=== PATIENT | female | born 1935 | race Caucasian/White ===

== ENCOUNTER 2017-04-27 13:45 | Inpatient (IN) | payer MEDICARE ==
[2017-04-27 14:34] LABS: Hematocrit 34.5 % (30.3-42.9); Hemoglobin 11.1 gm/dl (10.1-14.3); Mean Corpuscular HGB Conc 32 % (30-34); Mean Corpuscular Hemoglobin 29 pg (28-32); Mean Corpuscular Volume 90 fl (79-97); Platelet Count 249 K/mm3 (140-440); Red Blood Count 3.84 M/mm3 (3.65-5.03); Red Cell Distribution Width 15.9 % (13.2-15.2); White Blood Count 16.2 K/mm3 (4.5-11.0)
[2017-04-27 14:44] LABS: Calcium 8.7 mg/dL (8.4-10.2); Chloride 94.6 mmol/L (98-107); Potassium 4.8 mmol/L (3.6-5.0)
--- NOTE | 2017-04-27 21:13 | Emergency Department Report ---
ED General Adult HPI - General Chief complaint: Medical Clearance Stated complaint: NEEDS DIALYSIS Time Seen by Provider: 04/27/17 20:34 Source: patient, television and radio repairer Mode of arrival: Wheelchair Limitations: Language Barrier - History of Present Illness Initial comments: 81-year-old female with a past medical history of end-stage renal disease on dialysis, CHF, asthma, hypertension, left BKA present hospital with complaints of needing dialysis. Patient arrived here from [place] to date. Last dialysis was Thursday 2 days ago in [place]. Patient came here due to persistent power issues at the dialysis center in [place]. She is due for dialysis again tomorrow and does not have a local dialysis center. Patient makes very little urine output. No physical complaints reported. Patient has a right chest wall catheter for dialysis and had a left upper arm AV graft placed on 03/20/2017 that has not yet been accessed. - Related Data Home Medications Medication Instructions Recorded Confirmed Last Taken Aspirin 81 mg PO PMHY 04/27/17 04/27/17 Unknown AtorvaSTATin 40 mg PO PMHY 04/27/17 04/27/17 Unknown Budesonide 0.5 mg INHALATION BID PRN 04/27/17 04/27/17 Unknown Carvedilol 3.125 mg PO BID 04/27/17 04/27/17 Unknown Clonazepam 0.1 mg PO PMHY 04/27/17 04/27/17 Unknown Gabapentin 400 mg PO HS 04/27/17 04/27/17 Unknown Humalog 35 units INHALATION DAILY 04/27/17 04/27/17 Unknown Ipratropium 2.5 ml INHALATION Q6HR PRN 04/27/17 04/27/17 Unknown Isosorbide Mononitrate 30 mg PO DAILY 04/27/17 04/27/17 Unknown Lansoprazole 30 mg PO DAILY 04/27/17 04/27/17 Unknown Lantus 15 units IV HS 04/27/17 04/27/17 Unknown Prevacid 30 mg PO DAILY PRN 04/27/17 04/27/17 Unknown Synthroid 150 mcg PO DAILY 04/27/17 04/27/17 Unknown Allergies Allergy/AdvReac Type Severity Reaction Status Date / Time shellfish derived Allergy Unknown Verified 04/27/17 14:09 ED Review of Systems ROS: Stated complaint: NEEDS DIALYSIS Other details as noted in HPI Comment: All other systems reviewed and negative Other: Constitutional: No fevers chills Eyes: No eye pain visual changes ENT: No ear pain or throat pain Neck: Denies pain Respiratory: Denies cough Cardiovascular: Denies chest pain, palpitations, syncope GI: Denies abdominal pain, nausea, vomiting, diarrhea : minimal urie output Musculoskeletal: Denies back pain Skin: Denies rash, lesions, erythema Neurologic: Denies headache, numbness, weakness Psychiatric: Denies suicidal ideation, hallucinations ED Past Medical Hx - Past Medical History Hx Hypertension: Yes Hx Congestive Heart Failure: Yes Hx Diabetes: Yes Hx Renal Disease: Yes (ESRD with HD) Hx Asthma: Yes Additional medical history: amputation L AK,hypothyroidism,cardiomegaly,CAD, pneumonia,PVD - Surgical History Additional Surgical History: left below knee amputation.hysterectomy,heart stints,vascath right chest,AV graft 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 - Social History Smoking Status: Unknown if ever smoked Substance Use Type: None - Medications Home Medications: Home Medications Medication Instructions Recorded Confirmed Last Taken Type Aspirin 81 mg PO PMHY 04/27/17 04/27/17 Unknown History AtorvaSTATin 40 mg PO PMHY 04/27/17 04/27/17 Unknown History Budesonide 0.5 mg INHALATION BID PRN 04/27/17 04/27/17 Unknown History Carvedilol 3.125 mg PO BID 04/27/17 04/27/17 Unknown History Clonazepam 0.1 mg PO PMHY 04/27/17 04/27/17 Unknown History Gabapentin 400 mg PO HS 04/27/17 04/27/17 Unknown History Humalog 35 units INHALATION DAILY 04/27/17 04/27/17 Unknown History Ipratropium 2.5 ml INHALATION Q6HR PRN 04/27/17 04/27/17 Unknown History Isosorbide Mononitrate 30 mg PO DAILY 04/27/17 04/27/17 Unknown History Lansoprazole 30 mg PO DAILY 04/27/17 04/27/17 Unknown History Lantus 15 units IV HS 04/27/17 04/27/17 Unknown History Prevacid 30 mg PO DAILY PRN 04/27/17 04/27/17 Unknown History Synthroid 150 mcg PO DAILY 04/27/17 04/27/17 Unknown History ED Physical Exam - General Limitations: Language Barrier - Other Other exam information: General: No limitations, patient is alert in no acute distress Head exam: Atraumatic, normocephalic Eyes exam: Normal appearance, pupils equal reactive to light, extraocular movements intact ENT: Moist mucous membrane, normal oropharynx Neck exam: Normal inspection, full range of motion, no meningismus nontender Respiratory exam: Mild crackles at the bases. No wheezes, rales, or tachypnea. Right chest wall Vas-Cath Cardiovascular: Normal rate and rhythm, normal heart sounds Abdomen: Soft, nondistended, and nontender, with normal bowel sounds, no rebound, or guarding Extremity: Full range of motion, left BKA, left upper arm AV graft with positive thrill Back: Normal Inspection, full range of motion, no tenderness Neurologic: Alert, oriented x3, cranial nerves intact, no motor or sensory deficit Psychiatric: normal affect, normal mood Skin: Warm, dry, intact ED Course Vital Signs 04/27/17 04/27/17 04/27/17 14:01 15:44 16:00 Temperature 99.8 F H Pulse Rate 77 75 75 Respiratory 18 12 14 Rate Blood Pressure 140/93 128/56 Blood Pressure [Left] O2 Sat by Pulse 93 93 Oximetry 04/27/17 19:24 Temperature Pulse Rate 74 Respiratory 16 Rate Blood Pressure Blood Pressure 107/46 [Left] O2 Sat by Pulse 96 Oximetry - Reevaluation(s) Reevaluation #1: 04/27/17 21:15 Patient stable - Consultations Consultation #1: 04/27/17 21:13 case d/w Nephrology digital solution architect Dr Zarate, will consult and arrange for dialysis ED Medical Decision Making - Lab Data Result diagrams: 04/27/17 14:14 04/27/17 14:14 Lab Results 04/27/17 04/27/17 Range/Units 14:14 14:14 WBC 16.2 H (4.5-11.0) K/mm3 RBC 3.84 (3.65-5.03) M/mm3 Hgb 11.1 (10.1-14.3) gm/dl Hct 34.5 (30.3-42.9) % MCV 90 (79-97) fl MCH 29 (28-32) pg MCHC 32 (30-34) % RDW 15.9 H (13.2-15.2) % Plt Count 249 (140-440) K/mm3 Sodium 136 L (137-145) mmol/L Potassium 4.8 (3.6-5.0) mmol/L Chloride 94.6 L (98-107) mmol/L Carbon Dioxide 26 (22-30) mmol/L Anion Gap 20 mmol/L BUN 50 H (7-17) mg/dL Creatinine 3.3 H (0.7-1.2) mg/dL Estimated GFR 13 ml/min BUN/Creatinine Ratio 15 % Glucose 169 H (65-100) mg/dL Calcium 8.7 (8.4-10.2) mg/dL - EKG Data -: EKG Interpreted by Me (sinus rate 75, poor R-wave progression, LAFB, LVH) - EKG Data When compared to previous EKG there are: previous EKG unavailable - Radiology Data Radiology results: image reviewed (chest x-ray: Mild CHF) - Medical Decision Making Plan to admit patient to the hospital to receive dialysis tomorrow as scheduled and to help with arrangement of continued outpatient dialysis. Case has been discussed with nephrology. - Differential Diagnosis volume overload, hyperkalemia, noncompliance Critical Care Time: No Critical care attestation.: If time is entered above; I have spent that time in minutes in the direct care of this critically ill patient, excluding procedure time. ED Disposition Clinical Impression: ESRD needing dialysis, Acute CHF, Diabetes, HTN (hypertension), History of left below knee amputation Disposition: OP ADMIT IP TO THIS HOSP Is pt being admited?: Yes Condition: Stable Time of Disposition: 21:17 (Dr. Brice/hosp)
[2017-04-27] MEDS ORDERED: D50W (25GM) Syringe IV PRN (21:51)
[2017-04-27] MEDS ORDERED: TYLENOL PO PRN (21:54)
[2017-04-27] MEDS ORDERED: ZOFRAN IV PRN (21:55)
[2017-04-27] MEDS ORDERED: BUDESONIDE 0.5 MG INHALATION PRN (21:58)
[2017-04-27] MEDS ORDERED: IPRATROPIUM INHALATION PRN (21:58)
[2017-04-27] MEDS ORDERED: PREVACID 30 MG PO PRN (21:58)
[2017-04-27] MEDS ORDERED: LANTUS 15 UNIT IV SCH (22:00)
[2017-04-28] MEDS: COREG PO SCH ×3 (00:26→21:13)
[2017-04-28] MEDS: HALFPRIN EC PO SCH ×2 (00:38→21:13)
[2017-04-28] MEDS: NEURONTIN PO SCH ×2 (00:39→21:13)
[2017-04-28] MEDS: LEVEMIR SUB-Q SCH ×2 (00:53→21:21)
[2017-04-28 05:04] LABS: Hematocrit 30.9 % (30.3-42.9); Hemoglobin 10.1 gm/dl (10.1-14.3); Mean Corpuscular HGB Conc 33 % (30-34); Mean Corpuscular Hemoglobin 29 pg (28-32); Mean Corpuscular Volume 90 fl (79-97); Platelet Count 226 K/mm3 (140-440); Red Blood Count 3.44 M/mm3 (3.65-5.03); Red Cell Distribution Width 15.7 % (13.2-15.2); White Blood Count 11.3 K/mm3 (4.5-11.0)
[2017-04-28] MEDS: SYNTHROID PO SCH (05:16)
[2017-04-28] MEDS: ATROVENT IH SCH ×2 (05:16→07:36)
[2017-04-28 06:37] LABS: Calcium 8.6 mg/dL (8.4-10.2); Chloride 97.8 mmol/L (98-107); Potassium 4.7 mmol/L (3.6-5.0)
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
[2017-04-28] MEDS: PULMICORT IH SCH ×2 (07:36→20:30)
--- NOTE | 2017-04-28 08:07 | Consultation ---
History of Present Illness - Reason for Consult Consult date: 04/28/17 end stage renal disease, other (Anemia) - History of Present Illness The patient is a 81-year-old HF with medical history significant for ESRD on hemodialysis, Type 2 DM, CHF, Asthma, Hypertension, s/p left BKA, Hypothyroid and GERD presented to the ER with complaints of needing dialysis. Patient speaks only Malay. Patient was last dialyzed 3 days ago in [place]. Patient came here due to persistent power issues at the dialysis center in [place]. Past History Past Medical History: anemia, dialysis, ESRD, GERD, heart failure, hypertension Medications and Allergies Allergies Allergy/AdvReac Type Severity Reaction Status Date / Time shellfish derived Allergy Unknown Verified 04/27/17 14:09 Home Medications Medication Instructions Recorded Confirmed Last Taken Type Aspirin 81 mg PO PMHY 04/27/17 04/27/17 Unknown History AtorvaSTATin 40 mg PO PMHY 04/27/17 04/27/17 Unknown History Budesonide 0.5 mg INHALATION BID PRN 04/27/17 04/27/17 Unknown History Carvedilol 3.125 mg PO BID 04/27/17 04/27/17 Unknown History Clonazepam 0.1 mg PO PMHY 04/27/17 04/27/17 Unknown History Gabapentin 400 mg PO HS 04/27/17 04/27/17 Unknown History Humalog 35 units INHALATION DAILY 04/27/17 04/27/17 Unknown History Ipratropium 2.5 ml INHALATION Q6HR PRN 04/27/17 04/27/17 Unknown History Isosorbide Mononitrate 30 mg PO DAILY 04/27/17 04/27/17 Unknown History Lansoprazole 30 mg PO DAILY 04/27/17 04/27/17 Unknown History Lantus 15 units SUB-Q HS 04/27/17 04/27/17 Unknown History Prevacid 30 mg PO DAILY PRN 04/27/17 04/27/17 Unknown History Synthroid 150 mcg PO DAILY 04/27/17 04/27/17 Unknown History Active Meds: Active Medications Acetaminophen (Tylenol) 650 mg PO Q4H PRN PRN Reason: For Pain/Fever/Headache Aspirin (Halfprin Ec) 81 mg PO QHS [place] Last Admin: 04/28/17 00:38 Dose: 81 mg Atorvastatin Calcium (Lipitor) 40 mg PO QHS [place] Last Admin: 04/28/17 00:38 Dose: 40 mg Budesonide (Pulmicort) 0.5 mg IH Q12HRT [facility] Last Admin: 04/28/17 07:36 Dose: 0.5 mg Carvedilol (Coreg) 3.125 mg PO BID [facility] Last Admin: 04/28/17 00:26 Dose: Not Given Clonazepam (Klonopin) 0.5 mg PO QHS [facility] Last Admin: 04/28/17 00:38 Dose: 0.5 mg Dextrose (D50w (25gm) Syringe) 50 ml IV PRN PRN PRN Reason: Hypoglycemia Gabapentin (Neurontin) 400 mg PO [facility] Last Admin: 04/28/17 00:39 Dose: 400 mg Insulin Aspart (Novolog) 35 units SUB-Q QAM [facility] Insulin Detemir (Levemir) 15 units SUB-Q QHS [facility] Last Admin: 04/28/17 00:53 Dose: 15 units Insulin Human Regular (Novolin R) 0 units SUB-Q QHS [facility] PRN Reason: Protocol Last Admin: 04/28/17 00:39 Dose: 1 units Insulin Human Regular (Novolin R) 0 units SUB-Q AC [facility] PRN Reason: Protocol Ipratropium [place] (Atrovent) 0.5 mg IH Q6HRT [facility] Last Admin: 04/28/17 07:36 Dose: 0.5 mg Isosorbide Mononitrate (Imdur) 30 mg PO DAILY [facility] Levothyroxine Sodium (Synthroid) 150 mcg PO DAILY@0600 [facility] Last Admin: 04/28/17 05:16 Dose: 150 mcg Ondansetron HCl (Zofran) 4 mg IV Q8H PRN PRN Reason: Nausea And Vomiting Pantoprazole Sodium (Protonix) 40 mg PO DAILY [facility] Review of Systems ROS unobtainable: due to mental status (due to language barrier) Exam - Vital Signs Vital signs: Vital Signs Temp Pulse Resp BP Pulse Ox 99.8 F H 77 18 140/93 93 04/27/17 14:01 04/27/17 14:01 04/27/17 14:01 04/27/17 14:01 04/27/17 14:01 - General Appearance General appearance: well-developed, well-nourished, appears stated age, obese, other (no distress, right IJ tunnel catheter) EENT: ATNC, PERRL, mucous membranes moist, hearing intact Neck: Present: neck supple, trachea midline Respiratory: Clear to Ascultation Heart: regular, S1S2, no murmurs Gastrointestinal: Present: normoactive bowel sounds, obese. Absent: tenderness , distended Integumentary: no rash Neurologic: other (exam is limited, able to move all 4 extremities) Musculoskeletal: Present: other (no edema, left BKA, left arm AVG) Psychiatric: mood/affect appropriate, cooperative Results - Lab Results 04/28/17 04:20 04/28/17 06:11 Most recent lab results Calcium 8.6 mg/dL (8.4-10.2) 04/28/17 06:11 Assessment and Plan - Patient Problems (1) ESRD needing dialysis Current Visit: Yes Status: Chronic Plan to address problem: Continue hemodialysis TTS schedule. HD today. Patient need outpatient hemodialysis. (2) Anemia of renal disease Current Visit: Yes Status: Acute Plan to address problem: Epogen. (3) HTN (hypertension) Current Visit: Yes Status: Acute Qualifiers: Hypertension type: H Plan to address problem: BP well controlled. (4) Diabetes Current Visit: Yes Status: Acute Qualifiers: Diabetes mellitus type: D Diabetes mellitus complication status: D Diabetes mellitus complication detail: D Diabetic retinopathy severity: D Proliferative retinopathy type: P Diabetes mellitus macular edema: D Diabetes mellitus exterminator termite insulin use: D Laterality: L Chronic kidney disease stage: C
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
[2017-04-28] MEDS ORDERED: NACL 0.9% 100 ML IV PRN ×2 (08:30→12:32)
--- NOTE | 2017-04-28 08:33 | XRay Report ---
PORTABLE CHEST INDICATION: Cough. COMPARISON: None similar at this institution. FINDINGS: Portable, frontal chest radiograph demonstrates increased bronchovascular markings centrally and inferiorly. Left lower lung hazy opacity with obscured left hemidiaphragm, possibly pleural effusion/atelectasis/consolidation. Slight cardiomegaly. Aortic atherosclerotic calcifications. Right-sided central catheter tip about the cavoatrial junction. EKG leads. Grossly intact bones. CONCLUSION: Left lower lung opacity, mild cardiomegaly and central pulmonary vascular congestion, as described. Correlation with prior chest imaging would also be helpful, if available. Thank you for the opportunity to participate in this patient's care.
[2017-04-28] MEDS ORDERED: PROCRIT SUB-Q NR (09:00)
[2017-04-28] MEDS: PROTONIX PO SCH (09:45)
[2017-04-28] MEDS: IMDUR PO SCH (09:51)
[2017-04-28] MEDS: NOVOLOG SUB-Q SCH (09:52)
[2017-04-28] MEDS ORDERED: HUMALOG SQ SCH (10:00)
[2017-04-28] MEDS ORDERED: HEPARIN IV PRN (12:32)
[2017-04-28] MEDS ORDERED: NACL 0.9 (PRIMING MACHINE ONLY DIALYSIS) MC ONE (13:20)
--- NOTE | 2017-04-28 16:14 | Progress Note ---
Assessment and Plan Assessment and plan: The patient is a 81-year-old HF with medical history significant for ESRD on hemodialysis, Type 2 DM, CHF, Asthma, Hypertension, s/p left BKA, Hypothyroid and GERD presented to the ER with complaints of needing dialysis. Patient speaks only Maltese. Patient was last dialyzed 3 days ago in [place]. Patient came here due to persistent power issues at the dialysis center in [place]. End-stage Renal disease Diabetes mellitus Asthma Hypertension Status post left BKA Hypothyroidism Plan Continue current dialysis. Nephrology following. Continue home medications including diabetes control Accu-Cheks before meals daily at bedtime. Physical therapy of alert and treat Fall precautions Anticipate discharge in a.m. when dialysis center has been established. History Interval history: patient seen and examined in no acute distress. Hospitalist Physical - Physical exam Narrative exam: VITAL SIGNS: Reviewed. GENERAL: The patient appeared well nourished and normally developed. Vital signs as documented. HEAD: No signs of head trauma. EYES: Pupils are equal. Extraocular motions intact. EARS: Hearing grossly intact. MOUTH: Oropharynx is normal. NECK: No adenopathy, no JVD. CHEST: Chest with clear breath sounds bilaterally. No wheezes, rales, or rhonchi. CARDIAC: Regular rate and rhythm. S1 and S2, without murmurs, gallops, or rubs. VASCULAR: No Edema. Peripheral pulses normal and equal in all extremities. ABDOMEN: Soft, without detectable tenderness. No sign of distention. No rebound or guarding, and no masses palpated. Bowel Sounds normal. MUSCULOSKELETAL: Full range of motion, left BKA, left upper arm AV graft with positive thrill. Extremities without clubbing, cyanosis or edema. NEUROLOGIC EXAM: Alert and oriented x 3. No focal sensory or strength deficits. Speech normal. Follows commands. PSYCHIATRIC: Mood normal. SKIN: Right chest wall Vas-Cath. - Constitutional Vitals: Temp Pulse Resp BP Pulse Ox 98.3 F 74 20 133/51 94 04/28/17 14:49 04/28/17 14:49 04/28/17 14:49 04/28/17 14:49 04/28/17 14:49 Results - Labs CBC & Chem 7: 04/28/17 04:20 04/28/17 06:11 Labs: Laboratory Last Values WBC 11.3 K/mm3 (4.5-11.0) H 10/10/17 04:20 RBC 3.44 M/mm3 (3.65-5.03) L 04/28/17 04:20 Hgb 10.1 gm/dl (10.1-14.3) 04/28/17 04:20 Hct 30.9 % (30.3-42.9) 04/28/17 04:20 MCV 90 fl (79-97) 04/28/17 04:20 MCH 29 pg (28-32) 04/28/17 04:20 MCHC 33 % (30-34) 04/28/17 04:20 RDW 15.7 % (13.2-15.2) H 04/28/17 04:20 Plt Count 226 K/mm3 (140-440) 04/28/17 04:20 Sodium 137 mmol/L (137-145) 04/28/17 06:11 Potassium 4.7 mmol/L (3.6-5.0) 04/28/17 06:11 Chloride 97.8 mmol/L (98-107) L 04/28/17 06:11 Carbon Dioxide 25 mmol/L (22-30) 04/28/17 06:11 Anion Gap 19 mmol/L 04/28/17 06:11 BUN 57 mg/dL (7-17) H 04/28/17 06:11 Creatinine 3.5 mg/dL (0.7-1.2) H 04/28/17 06:11 Estimated GFR 13 ml/min 04/28/17 06:11 BUN/Creatinine Ratio 16 % 04/28/17 06:11 Glucose 104 mg/dL (65-100) H 04/28/17 06:11 POC Glucose 184 (70-105) H 04/28/17 14:15 Calcium 8.6 mg/dL (8.4-10.2) 04/28/17 06:11
[2017-04-29] MEDS: ATROVENT IH SCH ×5 (02:45→20:32)
[2017-04-29] MEDS: SYNTHROID PO SCH (06:41)
[2017-04-29] MEDS: PULMICORT IH SCH ×2 (07:29→20:32)
--- NOTE | 2017-04-29 08:24 | Progress Note ---
Assessment and Plan - Patient Problems (1) ESRD needing dialysis Current Visit: Yes Status: Chronic Plan to address problem: Continue hemodialysis TTS schedule. Patient need outpatient hemodialysis chair. (2) Anemia of renal disease Current Visit: Yes Status: Acute Plan to address problem: Epogen. (3) HTN (hypertension) Current Visit: Yes Status: Acute Qualifiers: Hypertension type: H Plan to address problem: BP well controlled. 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 Her niece was at the bedside who helped in translating. Objective - Vital Signs Vital signs: Vital Signs - 12hr 04/28/17 04/28/17 04/29/17 20:38 22:00 01:14 Temperature 98.6 F Pulse Rate 68 Pulse Rate [ 66 Anterior Bilateral Throughout] Respiratory 18 Rate Respiratory 16 Rate [Anterior Bilateral Throughout] Respiratory 20 Rate [no pain] Blood Pressure 124/49 [Right] O2 Sat by Pulse 100 Oximetry 04/29/17 04/29/17 04/29/17 04:40 07:30 07:35 Temperature 97.8 F Pulse Rate 61 Pulse Rate [ 60 62 Anterior Bilateral Throughout] Respiratory 18 Rate Respiratory 18 18 Rate [Anterior Bilateral Throughout] Respiratory Rate [no pain] Blood Pressure 106/52 [Right] O2 Sat by Pulse 100 Oximetry - General Appearance General appearance: well-developed, well-nourished, appears stated age, obese, other (no distress, right IJ tunnel catheter) EENT: ATNC, PERRL, mucous membranes moist, hearing intact Neck: supple Respiratory: Present: Clear to Ascultation Cardiology: regular, S1S2, no murmurs Gastrointestinal: normoactive bowel sounds, no tenderness, no distended, obese Integumentary: no rash Neurologic: no focal deficit Musculoskeletal: other (no edema, left BKA, left arm AVG) Psychiatric: cooperative - Lab 04/28/17 04:20 04/28/17 06:11 Most recent lab results Calcium 8.6 mg/dL (8.4-10.2) 04/28/17 06:11
--- NOTE | 2017-04-29 09:05 | XRay Report ---
ROUTINE CHEST, TWO VIEWS: HISTORY: Renal failure, shortness of breath. The right IJ venous catheter remains in good position. Mild cardiomegaly, mild pulmonary venous congestion and small to medium left pleural effusion appear stable since yesterday's exam. No convincing pneumonia or pneumothorax. The bony structures are intact. IMPRESSION: CHF.
[2017-04-29] MEDS: NOVOLOG SUB-Q SCH (09:30)
[2017-04-29] MEDS: IMDUR PO SCH (09:31)
[2017-04-29] MEDS: PROTONIX PO SCH (09:32)
[2017-04-29] MEDS: COREG PO SCH ×2 (09:34→21:17)
--- NOTE | 2017-04-29 15:54 | Progress Note ---
Assessment and Plan Assessment and Plan Assessment and plan: The patient is a 81-year-old HF with medical history significant for ESRD on hemodialysis, Type 2 DM, CHF, Asthma, Hypertension, s/p left BKA, Hypothyroid and GERD presented to the ER with complaints of needing dialysis. Patient speaks only Czech. Patient was last dialyzed 3 days ago in [place]. Patient came here due to persistent power issues at the dialysis center in [place]. End-stage Renal disease Diabetes mellitus Asthma Hypertension Status post left BKA Hypothyroidism Plan Continue current dialysis. Nephrology following. Continue home medications including diabetes control Accu-Cheks before meals daily at bedtime. Physical therapy of alert and treat Fall precautions Anticipate discharge when dialysis center has been established. Subjective Date of service: 04/29/17 Principal diagnosis: ESRd Interval history: Doing well .Waiting for Dialysis placement. Objective - Constitutional Vitals: Vital Signs - 12hr 04/29/17 04/29/17 04/29/17 04:40 07:30 07:35 Temperature 97.8 F Pulse Rate 61 Pulse Rate [ 60 62 Anterior Bilateral Throughout] Respiratory 18 Rate Respiratory 18 18 Rate [Anterior Bilateral Throughout] Blood Pressure Blood Pressure 106/52 [Right] O2 Sat by Pulse 100 Oximetry 04/29/17 04/29/17 04/29/17 09:31 09:34 10:00 Temperature Pulse Rate 68 68 Pulse Rate [ Anterior Bilateral Throughout] Respiratory Rate Respiratory Rate [Anterior Bilateral Throughout] Blood Pressure 113/46 113/46 Blood Pressure [Right] O2 Sat by Pulse 97 Oximetry 04/29/17 04/29/17 04/29/17 10:43 13:59 14:00 Temperature 97.8 F 97.5 F L 97.5 F L Pulse Rate 61 64 Pulse Rate [ Anterior Bilateral Throughout] Respiratory 18 18 Rate Respiratory Rate [Anterior Bilateral Throughout] Blood Pressure Blood Pressure 115/47 124/49 [Right] O2 Sat by Pulse 97 96 Oximetry General appearance: Present: no acute distress, well-nourished - EENT Eyes: PERRL, EOM intact ENT: hearing intact, clear oral mucosa Ears: bilateral: normal - Neck Neck: supple, normal ROM - Respiratory Respiratory effort: normal Respiratory: bilateral: CTA - Breasts Breasts: normal - Cardiovascular Rhythm: regular Heart Sounds: Present: S1 & S2. Absent: gallop, rub Extremities: pulses intact, No edema, normal color, Full ROM - Gastrointestinal General gastrointestinal: Present: soft, non-tender, non-distended, normal bowel sounds - Genitourinary Female genitourinary: normal - Integumentary Integumentary: clear, warm, dry - Musculoskeletal Musculoskeletal: 1, strength equal bilaterally - Neurologic Neurologic: moves all extremities - Psychiatric Psychiatric: memory intact, appropriate mood/affect, intact judgment & insight - Allied health notes Allied health notes reviewed: nursing, case management - Labs CBC & Chem 7: 04/28/17 04:20 04/28/17 06:11 Labs: Abnormal lab results 04/28/17 04/28/17 04/29/17 Range/Units 16:28 21:24 07:22 POC Glucose 186 H 200 H < 40 L (70-105) 04/29/17 04/29/17 Range/Units 07:27 11:24 POC Glucose 55 L 232 H (70-105)
--- NOTE | 2017-04-29 17:03 | XRay Report ---
Portable chest: Worsening cough/orthopnea. Comparison is made to the prior study of April 28. Right jugular central venous catheter unchanged in good position. The heart is probably normal in size the positioning. There may be minimal vascular congestion but the overall vascular pattern is improved. There is still left opacity obscuring the left hemidiaphragm. There is mild blunting that may represent an effusion. No clearly definable infiltrate however was noted in the lateral projection on prior study. Impression: Interval improvement in vascular congestion. Persistent left basilar opacity possibly representing effusion.
[2017-04-29] MEDS: HALFPRIN EC PO SCH (21:16)
[2017-04-29] MEDS: NEURONTIN PO SCH (21:16)
[2017-04-29] MEDS: LEVEMIR SUB-Q SCH (21:18)
[2017-04-30] MEDS: ATROVENT IH SCH ×3 (03:12→15:54)
[2017-04-30] MEDS: SYNTHROID PO SCH (05:51)
[2017-04-30] MEDS: PULMICORT IH SCH (07:28)
--- NOTE | 2017-04-30 08:33 | Progress Note ---
Assessment and Plan - Patient Problems (1) ESRD needing dialysis Current Visit: Yes Status: Chronic Plan to address problem: Continue hemodialysis TTS schedule. High venous pressure in the AVG. Outpatient vascular evaluation. Patient has outpatient hemodialysis chair at [facility]. Patient need to start at [facility] tomorrow at noon. (2) Anemia of renal disease Current Visit: Yes Status: Acute Plan to address problem: Epogen. (3) HTN (hypertension) Current Visit: Yes Status: Acute Qualifiers: Hypertension type: H Plan to address problem: BP well controlled. 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 Breathing is good. Her niece was at the bedside who helped in translating. Objective - Vital Signs Vital signs: Vital Signs - 12hr 04/29/17 04/29/17 04/29/17 20:55 21:17 22:00 Pulse Rate 69 Pulse Rate [ 65 Anterior Bilateral Throughout] Respiratory 18 Rate [Anterior Bilateral Throughout] Respiratory 20 Rate [no pain] Blood Pressure 129/49 04/30/17 03:00 Pulse Rate Pulse Rate [ 75 Anterior Bilateral Throughout] Respiratory 16 Rate [Anterior Bilateral Throughout] Respiratory Rate [no pain] Blood Pressure - General Appearance General appearance: well-developed, well-nourished, appears stated age, obese, other (no distress, right IJ tunnel catheter) EENT: ATNC, PERRL, mucous membranes moist, hearing intact, vision intact Neck: supple Respiratory: Present: Clear to Ascultation. Absent: Rales, Ronchi, Wheezes Cardiology: regular, S1S2, no murmurs Gastrointestinal: normoactive bowel sounds, no tenderness, no distended, obese Integumentary: no rash Neurologic: no focal deficit, no asterixis, CN 3-12 intact Musculoskeletal: other (left BKA, no edema, left arm AVG) Psychiatric: mood/affect appropriate, cooperative - Lab 04/28/17 04:20 04/28/17 06:11 Most recent lab results Calcium 8.6 mg/dL (8.4-10.2) 04/28/17 06:11
[2017-04-30] MEDS: COREG PO SCH (09:32)
[2017-04-30] MEDS: IMDUR PO SCH (09:33)
[2017-04-30] MEDS: NOVOLOG SUB-Q SCH (09:36)
[2017-04-30] MEDS: PROTONIX PO SCH (09:37)
--- NOTE | 2017-04-30 15:37 | Discharge Summary ---
Providers - Providers Date of Admission: 04/27/17 21:49 Date of discharge: 04/30/17 Attending physician: AVI HODGSON 04/28/17 15:42 Consult to Case Management [CONS] Urgent Services Needed at Discharge: Other Notified:: Case Management Phone number called:: [phone] Was contact made?: Yes If yes, spoke with:: Nargis Time called:: 15:44 Additional Physician Instructions: Outpatient HD at [facility]. Primary care physician: [employer] Hospitalization Condition: Stable Hospital course: Assessment and Plan Assessment and plan: The patient is a 81-year-old HF with medical history significant for ESRD on hemodialysis, Type 2 DM, CHF, Asthma, Hypertension, s/p left BKA, Hypothyroid and GERD presented to the ER with complaints of needing dialysis. Patient speaks only Somali. Patient was last dialyzed 3 days ago in [place]. Patient came here due to persistent power issues at the dialysis center in [place]. End-stage Renal disease Diabetes mellitus Asthma Hypertension Status post left BKA Hypothyroidism Plan Continue current dialysis. Nephrology following. Continue home medications including diabetes control Accu-Cheks before meals daily at bedtime. Physical therapy Fall precautions Anticipate discharge when dialysis center has been established. Disposition: DC-01 TO HOME OR SELFCARE Core Measure Documentation - Palliative Care Palliative Care/ Comfort Measures: Not Applicable - Core Measures Any of the following diagnoses?: none Exam - Constitutional Vitals: Temp Pulse Resp BP Pulse Ox 97.9 F 86 16 123/44 96 04/30/17 11:45 04/30/17 15:15 04/30/17 11:45 04/30/17 15:15 04/29/17 13:59 General appearance: Present: no acute distress, well-nourished - EENT Eyes: Present: PERRL ENT: hearing intact, clear oral mucosa - Neck Neck: Present: supple, normal ROM - Respiratory Respiratory effort: normal Respiratory: bilateral: CTA - Cardiovascular Heart rate: 70 Rhythm: regular Heart Sounds: Present: S1 & S2. Absent: rub, click - Extremities Extremities: pulses symmetrical, No edema Peripheral Pulses: within normal limits - Abdominal General gastrointestinal: Present: soft, non-tender, non-distended, normal bowel sounds Female genitourinary: Present: normal - Integumentary Integumentary: Present: clear, warm, dry - Musculoskeletal Musculoskeletal: gait normal, strength equal bilaterally - Psychiatric Psychiatric: appropriate mood/affect, intact judgment & insight - Neurologic Neurologic: CNII-XII intact, moves all extremities - Allied Health Allied health notes reviewed: nursing, case management Plan Weight Bearing Status: Weight Bear as Tolerated Diet: renal Durable Medical Equipment Needed Upon Discharge: Crutches, Walker-Rolling Follow up with: TYRESE SUNSHINE MD [Staff Physician] - 7 Days
[2017-04-30 16:16] VITALS: BP 106/44
== END 2017-04-30 17:45 | disposition home or self-care (01) | DRG 291 ==
LOC: ED 13:45 → CC2 21:49
PROVIDERS: ADMIT Internal Medicine; ATTEND Internal Medicine
PROC: 5A1D70Z Performance of Urinary Filtration, Intermittent, Less than 6 Hours Per Day (ICD-10-PCS; principal; 2017-04-28)
PROC: 5A1D70Z Performance of Urinary Filtration, Intermittent, Less than 6 Hours Per Day (ICD-10-PCS; 2017-04-30)
DX: I13.2 Hypertensive heart and chronic kidney disease with heart failure and with stage 5 chronic kidney disease, or end stage renal disease (principal); N18.6 End stage renal disease; Z91.15 Patient's noncompliance with renal dialysis; J45.909 Unspecified asthma, uncomplicated; Z89.512 Acquired absence of left leg below knee; E03.9 Hypothyroidism, unspecified; K21.9 Gastro-esophageal reflux disease without esophagitis; E11.22 Type 2 diabetes mellitus with diabetic chronic kidney disease; Z79.899 Other long term (current) drug therapy; Z79.82 Long term (current) use of aspirin; I25.10 Atherosclerotic heart disease of native coronary artery without angina pectoris; E11.51 Type 2 diabetes mellitus with diabetic peripheral angiopathy without gangrene; Z87.01 Personal history of pneumonia (recurrent); Z91.013 Allergy to seafood
CPT/HCPCS: 36415; 71010; 71020; 80048; 80074; 82962; 85027; 93005; 93010; 94640; A9270-GY; J0885; J1644; J1815; J1818; J7030

== ENCOUNTER 2017-05-06 10:23 | Inpatient (IN) | payer MEDICARE ==
[2017-05-06 11:10] LABS: Basophils % (Auto) 0.4 % (0.0-1.8); Eosinophils % (Auto) 0.7 % (0.0-4.3); Hematocrit 34.4 % (30.3-42.9); Hemoglobin 11.5 gm/dl (10.1-14.3); Mean Corpuscular HGB Conc 34 % (30-34); Mean Corpuscular Hemoglobin 30 pg (28-32); Mean Corpuscular Volume 88 fl (79-97); Platelet Count 261 K/mm3 (140-440); Red Blood Count 3.89 M/mm3 (3.65-5.03); Red Cell Distribution Width 15.8 % (13.2-15.2); White Blood Count 17.2 K/mm3 (4.5-11.0)
[2017-05-06 11:44] LABS: Potassium 4.4 mmol/L (3.6-5.0)
--- NOTE | 2017-05-06 11:44 | Emergency Department Report ---
ED Shortness of Breath HPI - General Chief Complaint: Dyspnea/Respdistress Stated Complaint: ALISA Time Seen by Provider: 05/06/17 11:29 Source: family Mode of arrival: Wheelchair Limitations: Physical Limitation - History of Present Illness Initial Comments: 81-year-old female here with complaint of shortness of breath. Patient has a history of end-stage renal disease and received dialysis yesterday. She states that she has some difficulty with shortness of breath off and after dialysis sessions. Patient was given fluids back on her dialysis session yesterday and now feels worsening shortness of breath. -: Gradual Consistency: constant Improves With: rest Worsens With: exertion - Related Data Home Medications Medication Instructions Recorded Confirmed Last Taken Budesonide 0.5 mg INHALATION BID PRN 04/27/17 04/27/17 Unknown Humalog 35 units INHALATION DAILY 04/27/17 04/27/17 Unknown Ipratropium 2.5 ml INHALATION Q6HR PRN 04/27/17 04/27/17 Unknown Lantus 15 units SUB-Q HS 04/27/17 04/27/17 Unknown Prevacid 30 mg PO DAILY PRN 04/27/17 04/27/17 Unknown Previous Rx's Medication Instructions Recorded Last Taken Type Aspirin 81 mg PO PMHY #100 04/30/17 Unknown Rx AtorvaSTATin 40 mg PO PMHY #30 04/30/17 Unknown Rx AtorvaSTATin [Lipitor] 40 mg PO QHS tablet 04/30/17 Unknown Rx Budesonide [Pulmicort Respules] 0.5 mg IH Q12HRT #25 nebu 04/30/17 Unknown Rx Carvedilol 3.125 mg PO BID #60 04/30/17 Unknown Rx Gabapentin 400 mg PO HS #30 04/30/17 Unknown Rx ISOSORBIDE MONOnitrate [Imdur ER] 30 mg PO DAILY #30 tablet 04/30/17 Unknown Rx Insulin Detemir [Levemir] 15 units SUB-Q QHS #4 pen 04/30/17 Unknown Rx Insulin Regular, Human [HumuLIN R] 5 units SUB-Q AC #5 pen 04/30/17 Unknown Rx Pantoprazole [Protonix TAB] 40 mg PO DAILY #30 tablet 04/30/17 Unknown Rx Synthroid 150 mcg PO DAILY #30 04/30/17 Unknown Rx clonazePAM [KlonoPIN] 0.5 mg PO QHS #30 tablet 04/30/17 Unknown Rx Allergies Allergy/AdvReac Type Severity Reaction Status Date / Time shellfish derived Allergy Unknown Verified 04/27/17 14:09 ED Review of Systems ROS: Stated complaint: ALISA Other details as noted in HPI Comment: All other systems reviewed and negative Constitutional: denies: chills, fever ENT: denies: ear pain, throat pain Respiratory: shortness of breath. denies: cough, wheezing Cardiovascular: dyspnea on exertion. denies: chest pain, palpitations Endocrine: no symptoms reported Gastrointestinal: denies: abdominal pain, nausea, diarrhea Genitourinary: denies: urgency, dysuria, discharge Musculoskeletal: denies: back pain, joint swelling, arthralgia Skin: denies: rash, lesions Neurological: denies: headache, weakness, paresthesias Psychiatric: denies: anxiety, depression Hematological/Lymphatic: denies: easy bleeding, easy bruising ED Past Medical Hx - Past Medical History Hx Hypertension: Yes Hx Congestive Heart Failure: Yes Hx Diabetes: Yes Hx Renal Disease: Yes (ESRD with HD) Hx Asthma: Yes Hx Tuberculosis: No Hx HIV: No Additional medical history: amputation L AK,hypothyroidism,cardiomegaly,CAD, pneumonia,PVD - Surgical History Hx Coronary Stent: Yes Additional Surgical History: left below knee amputation.hysterectomy,heart stints,vascath right chest,AV graft 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 - Social History Smoking Status: Never Smoker Substance Use Type: None - Medications Home Medications: Home Medications Medication Instructions Recorded Confirmed Last Taken Type Budesonide 0.5 mg INHALATION BID PRN 04/27/17 04/27/17 Unknown History Humalog 35 units INHALATION DAILY 04/27/17 04/27/17 Unknown History Ipratropium 2.5 ml INHALATION Q6HR PRN 04/27/17 04/27/17 Unknown History Lantus 15 units SUB-Q HS 04/27/17 04/27/17 Unknown History Prevacid 30 mg PO DAILY PRN 04/27/17 04/27/17 Unknown History Aspirin 81 mg PO PMHY #100 04/30/17 Unknown Rx AtorvaSTATin 40 mg PO PMHY #30 04/30/17 Unknown Rx AtorvaSTATin [Lipitor] 40 mg PO QHS tablet 04/30/17 Unknown Rx Budesonide [Pulmicort Respules] 0.5 mg IH Q12HRT #25 nebu 04/30/17 Unknown Rx Carvedilol 3.125 mg PO BID #60 04/30/17 Unknown Rx Gabapentin 400 mg PO HS #30 04/30/17 Unknown Rx ISOSORBIDE MONOnitrate [Imdur ER] 30 mg PO DAILY #30 tablet 04/30/17 Unknown Rx Insulin Detemir [Levemir] 15 units SUB-Q QHS #4 pen 04/30/17 Unknown Rx Insulin Regular, Human [HumuLIN R] 5 units SUB-Q AC #5 pen 04/30/17 Unknown Rx Pantoprazole [Protonix TAB] 40 mg PO DAILY #30 tablet 04/30/17 Unknown Rx Synthroid 150 mcg PO DAILY #30 04/30/17 Unknown Rx clonazePAM [KlonoPIN] 0.5 mg PO QHS #30 tablet 04/30/17 Unknown Rx ED Physical Exam - General Limitations: Physical Limitation General appearance: alert, in no apparent distress - Head Head exam: Present: atraumatic, normocephalic - Eye Eye exam: Present: normal appearance - ENT ENT exam: Present: mucous membranes moist - Neck Neck exam: Present: normal inspection - Respiratory Respiratory exam: Present: rales, rhonchi. Absent: respiratory distress - Cardiovascular Cardiovascular Exam: Present: regular rate, normal rhythm. Absent: systolic murmur, diastolic murmur, rubs, gallop - GI/Abdominal GI/Abdominal exam: Present: soft, normal bowel sounds - Extremities Exam Extremities exam: Present: normal inspection - Back Exam Back exam: Present: normal inspection - Neurological Exam Neurological exam: Present: alert, oriented X3 - Psychiatric Psychiatric exam: Present: normal affect, normal mood - Skin Skin exam: Present: warm, dry, intact, normal color. Absent: rash ED Course Vital Signs 05/06/17 10:30 Temperature 97.7 F Pulse Rate 60 Respiratory 18 Rate Blood Pressure 129/96 O2 Sat by Pulse 96 Oximetry ED Medical Decision Making - Lab Data Result diagrams: 05/06/17 10:52 05/06/17 10:52 Laboratory Results - last 24 hr 05/06/17 05/06/17 10:52 10:52 WBC 17.2 H RBC 3.89 Hgb 11.5 Hct 34.4 MCV 88 MCH 30 MCHC 34 RDW 15.8 H Plt Count 261 Lymph % (Auto) 12.3 L [place] % (Auto) 5.9 Eos % (Auto) 0.7 Baso % (Auto) 0.4 Lymph # 2.1 [place] # 1.0 H Eos # 0.1 Baso # 0.1 Seg Neutrophils % 80.7 H Seg Neutrophils # 13.9 H Sodium 144 Potassium 4.4 Chloride 99.0 Carbon Dioxide 32 H Anion Gap 17 BUN 51 H Creatinine 2.9 H Estimated GFR 16 BUN/Creatinine Ratio 18 Glucose 173 H Calcium 9.0 - Medical Decision Making 81-year-old female who presents emergency Department with complaint of shortness of breath after dialysis yesterday. Patient states she was given fluid back at her dialysis session due to hypotension. Currently she is volume overloaded. Crackles on her clinical exam and her x-ray demonstrates that she is volume overloaded. Plan to discuss case with her dialysis physician and will admit to hospitalist for further dialysis treatment. Discussed case with hospitalist and with nephrology. Plan admit patient to hospitalist service. She is stable for floor. Portions of this chart were dictated with dictation software. There may be dictation errors contained within this note. Critical care attestation.: If time is entered above; I have spent that time in minutes in the direct care of this critically ill patient, excluding procedure time. ED Disposition Clinical Impression: ESRD needing dialysis, Acute CHF Disposition: OP ADMIT IP TO THIS HOSP Is pt being admited?: Yes Condition: Stable
--- NOTE | 2017-05-06 12:00 | XRay Report ---
Chest 2 views: Compared to 04/29/17. History: Shortness of breath. Findings: Cardiomegaly with left pleural effusion. Mild pulmonary venous congestion. Stable large bore right venous catheter. Impression: No significant interval change.
--- NOTE | 2017-05-06 14:33 | Consultation ---
History of Present Illness - Reason for Consult Consult date: 05/06/17 end stage renal disease, other (Volume overload.) - History of Present Illness The patient is a 81-year-old HF with medical history significant for ESRD on hemodialysis(TTS), Type 2 DM, CHF, Asthma, Hypertension, s/p left BKA, Hypothyroid and GERD presented to the ER with complaints of shortness of breath since yesterday. Patient completed her hemodialysis yesterday but unable to remove the goal amount of fluid due to hypotension. She became short of breath last night. She came to the hospital since the breathing got worse today. Patient denies any cough, phlegm, hemoptysis, fever, leg swelling, cp or wheezing. Patient speaks only Romanian and her niece was at the bedside who helped in translating. She is feeling better now with O2. She was using O2 while at [place], currently she don't have O2 at home. Past History Past Medical History: anemia, diabetes, dialysis, ESRD, heart failure, hyperlipidemia, other (Left BKA) Medications and Allergies Allergies Allergy/AdvReac Type Severity Reaction Status Date / Time shellfish derived Allergy Unknown Verified 04/27/17 14:09 Home Medications Medication Instructions Recorded Confirmed Last Taken Type AtorvaSTATin [Lipitor] 40 mg PO QHS tablet 04/30/17 05/06/17 05/05/17 Rx Budesonide [Pulmicort Respules] 0.5 mg IH Q12HRT #25 nebu 04/30/17 05/06/17 Rx ISOSORBIDE MONOnitrate [Imdur ER] 30 mg PO DAILY #30 tablet 04/30/17 05/06/17 Rx Insulin Detemir [Levemir] 15 units SUB-Q QHS #4 pen 04/30/17 05/06/17 05/05/17 Rx Insulin Regular, Human [HumuLIN R] 5 units SUB-Q AC #5 pen 04/30/17 05/06/17 Rx Pantoprazole [Protonix TAB] 40 mg PO DAILY #30 tablet 04/30/17 05/06/17 Rx clonazePAM [KlonoPIN] 0.5 mg PO QHS #30 tablet 04/30/17 05/06/17 05/05/17 Rx Aspirin [Adult Low Dose Aspirin EC] 81 mg PO DAILY 05/06/17 05/06/17 05/06/17 History Carvedilol [Coreg] 3.125 mg PO BID 05/06/17 05/06/17 05/06/17 History Gabapentin [Neurontin] 400 mg PO QHS 05/06/17 05/06/17 05/06/17 History Levothyroxine [Synthroid] 150 mcg PO QAM 05/06/17 05/06/17 05/06/17 History Review of Systems Constitutional: no weight loss, no weight gain, no fever, no chills, no anorexia , no weakness, no poor appetite, no chronic pain Ears, nose, mouth and throat: no epistaxis Breasts: deferred Cardiovascular: orthopnea, shortness of breath, dyspnea on exertion, no chest pain, no palpitations, no rapid/irregular heart beat, no edema, no syncope, no lightheadedness, no high blood pressure, no leg edema Respiratory: shortness of breath, dyspnea on exertion, no cough, no cough with sputum, no wheezing Gastrointestinal: no abdominal pain, no nausea, no vomiting, no diarrhea, no hematemesis, no melena Genitourinary Female: no dysuria, no hematuria Rectal: no bleeding Musculoskeletal: no redness of joints, no hot joints Integumentary: no rash, no sores, no wounds, no jaundice Neurological: no paralysis, no weakness, no syncope, no convulsions, no confusion Psychiatric: no disorientation, no confusion Hematologic/Lymphatic: no easy bruising, no easy bleeding Exam - Vital Signs Vital signs: Vital Signs Temp Pulse Resp BP Pulse Ox 97.7 F 60 18 129/96 96 05/06/17 10:30 05/06/17 10:30 05/06/17 10:30 05/06/17 10:30 05/06/17 10:30 - General Appearance General appearance: well-developed, well-nourished, appears stated age, obese, other (right IJ tunnel catheter, no distress) EENT: ATNC, PERRL, mucous membranes moist, hearing intact, vision intact Neck: Present: neck supple, trachea midline Respiratory: Rales (minimal, bibasal) Heart: regular, S1S2, no murmurs Gastrointestinal: Present: normoactive bowel sounds, obese. Absent: tenderness , distended Integumentary: no rash, warm and dry Neurologic: no focal deficit, no asterixis, CN 3-12 intact Musculoskeletal: Present: other (left BKA, no edema) Psychiatric: mood/affect appropriate, cooperative Results - Lab Results 05/06/17 10:52 05/06/17 10:52 Most recent lab results Calcium 9.0 mg/dL (8.4-10.2) 05/06/17 10:52 - Image Kidney/bladder ultrasound: other Assessment and Plan - Patient Problems (1) Acute CHF Current Visit: Yes Status: Acute Qualifiers: Congestive heart failure type: C Plan to address problem: Patient doesn't appear to be overtly volume overloaded. SOB is likely secondary to chronic respiratory failure and CHF. D/w niece about bringing the O2 machine from [place]. Continue O2. UF today to remove 2 Lts of fluid. (2) ESRD needing dialysis Current Visit: Yes Status: Chronic Plan to address problem: UF today. Hemodialysis tomorrow. (3) Anemia of renal disease Current Visit: No Status: Chronic Plan to address problem: Epogen if needed. (4) Chronic respiratory failure with hypoxia Current Visit: Yes Status: Chronic Plan to address problem: Continue O2.
[2017-05-06] MEDS ORDERED: NACL 0.9% 100 ML IV PRN ×3 (14:37→23:40)
--- NOTE | 2017-05-06 16:10 | History and Physical Report ---
History of Present Illness Date of examination: 05/06/17 Date of admission: 05/06/17 12:21 Chief complaint: CC Increasing SOB 1 day History of present illness: History of Present Illness 81-year-old female here with complaint of shortness of breath. Patient has a history of end-stage renal disease and received dialysis yesterday. She states that she has some difficulty with shortness of breath off and after dialysis sessions. Patient was given fluids back on her dialysis session yesterday and now feels worsening shortness of breath.Increased fluid intake at home. 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 - Social History Smoking Status: Never Smoker Substance Use Type: None Fam Hx non contributory - Medications Home Medications: Home Medications Medication Instructions Recorded Confirmed Last Taken Type Budesonide 0.5 mg INHALATION BID PRN 04/27/17 04/27/17 Unknown History Humalog 35 units INHALATION DAILY 04/27/17 04/27/17 Unknown History Ipratropium 2.5 ml INHALATION Q6HR PRN 04/27/17 04/27/17 Unknown History Lantus 15 units SUB-Q HS 04/27/17 04/27/17 Unknown History Prevacid 30 mg PO DAILY PRN 04/27/17 04/27/17 Unknown History Aspirin 81 mg PO PMHY #100 04/30/17 Unknown Rx AtorvaSTATin 40 mg PO PMHY #30 04/30/17 Unknown Rx AtorvaSTATin [Lipitor] 40 mg PO QHS tablet 04/30/17 Unknown Rx Budesonide [Pulmicort Respules] 0.5 mg IH Q12HRT #25 nebu 04/30/17 Unknown Rx Carvedilol 3.125 mg PO BID #60 04/30/17 Unknown Rx Gabapentin 400 mg PO HS #30 04/30/17 Unknown Rx ISOSORBIDE MONOnitrate [Imdur ER] 30 mg PO DAILY #30 tablet 04/30/17 Unknown Rx Insulin Detemir [Levemir] 15 units SUB-Q QHS #4 pen 04/30/17 Unknown Rx Insulin Regular, Human [HumuLIN R] 5 units SUB-Q AC #5 pen 04/30/17 Unknown Rx Pantoprazole [Protonix TAB] 40 mg PO DAILY #30 tablet 04/30/17 Unknown Rx Synthroid 150 mcg PO DAILY #30 04/30/17 Unknown Rx clonazePAM [KlonoPIN] 0.5 mg PO QHS #30 tablet 04/30/17 Unknown Rx Review of Systems Stated complaint: ALISA Other details as noted in HPI Comment: All other systems reviewed and negative Constitutional: denies: chills, fever ENT: denies: ear pain, throat pain Respiratory: shortness of breath. denies: cough, wheezing Cardiovascular: dyspnea on exertion. denies: chest pain, palpitations Endocrine: no symptoms reported Gastrointestinal: denies: abdominal pain, nausea, diarrhea Genitourinary: denies: urgency, dysuria, discharge Musculoskeletal: denies: back pain, joint swelling, arthralgia Skin: denies: rash, lesions Neurological: denies: headache, weakness, paresthesias Psychiatric: denies: anxiety, depression Hematological/Lymphatic: denies: easy bleeding, easy bruising Past History Past Medical History: anemia, diabetes, dialysis, ESRD, heart failure, hyperlipidemia, other (Left BKA) Medications and Allergies Allergies Allergy/AdvReac Type Severity Reaction Status Date / Time shellfish derived Allergy Unknown Verified 04/27/17 14:09 Home Medications Medication Instructions Recorded Confirmed Last Taken Type AtorvaSTATin [Lipitor] 40 mg PO QHS tablet 04/30/17 05/06/17 05/05/17 Rx Budesonide [Pulmicort Respules] 0.5 mg IH Q12HRT #25 nebu 04/30/17 05/06/17 Rx ISOSORBIDE MONOnitrate [Imdur ER] 30 mg PO DAILY #30 tablet 04/30/17 05/06/17 Rx Insulin Detemir [Levemir] 15 units SUB-Q QHS #4 pen 04/30/17 05/06/17 05/05/17 Rx Insulin Regular, Human [HumuLIN R] 5 units SUB-Q AC #5 pen 04/30/17 05/06/17 Rx Pantoprazole [Protonix TAB] 40 mg PO DAILY #30 tablet 04/30/17 05/06/17 Rx clonazePAM [KlonoPIN] 0.5 mg PO QHS #30 tablet 04/30/17 05/06/17 05/05/17 Rx Aspirin [Adult Low Dose Aspirin EC] 81 mg PO DAILY 05/06/17 05/06/17 05/06/17 History Carvedilol [Coreg] 3.125 mg PO BID 05/06/17 05/06/17 05/06/17 History Gabapentin [Neurontin] 400 mg PO QHS 05/06/17 05/06/17 05/06/17 History Levothyroxine [Synthroid] 150 mcg PO QAM 05/06/17 05/06/17 05/06/17 History Active Meds: Active Medications Sodium Chloride (Nacl 0.9%) 100 mls @ 999 mls/hr IV JOSÉ MIGUEL PRN PRN Reason: Hypotension Sodium Chloride (Nacl 0.9%) 100 mls @ 999 mls/hr IV JOSÉ MIGUEL PRN PRN Reason: Hypotension Exam - Constitutional Vitals: Temp Pulse Resp BP Pulse Ox 97.7 F 60 12 106/52 100 05/06/17 10:30 05/06/17 15:30 05/06/17 15:30 05/06/17 15:30 05/06/17 15:30 General appearance: Present: mild distress, well-nourished - EENT Eyes: Present: PERRL ENT: hearing intact, clear oral mucosa - Neck Neck: Present: supple, normal ROM - Respiratory Respiratory effort: normal Respiratory: bilateral: rales (Basal) - Cardiovascular Heart rate: 96 Rhythm: regular Heart Sounds: Present: S1 & S2. Absent: rub, click - Extremities Extremities: no ischemia, pulses symmetrical, No edema Extremity abnormal: other (L AKA) Peripheral Pulses: within normal limits - Abdominal General gastrointestinal: Present: soft, non-tender, non-distended, normal bowel sounds Female genitourinary: Present: normal - Integumentary Integumentary: Present: clear, warm, dry - Musculoskeletal Musculoskeletal: gait normal, strength equal bilaterally - Psychiatric Psychiatric: appropriate mood/affect, intact judgment & insight - Neurologic Neurologic: CNII-XII intact, moves all extremities Results - Labs CBC & Chem 7: 05/07/17 04:34 05/07/17 04:34 Labs: Laboratory Last Values WBC 17.2 K/mm3 (4.5-11.0) H 05/06/17 10:52 RBC 3.89 M/mm3 (3.65-5.03) 05/06/17 10:52 Hgb 11.5 gm/dl (10.1-14.3) 05/06/17 10:52 Hct 34.4 % (30.3-42.9) 05/06/17 10:52 MCV 88 fl (79-97) 05/06/17 10:52 MCH 30 pg (28-32) 05/06/17 10:52 MCHC 34 % (30-34) 05/06/17 10:52 RDW 15.8 % (13.2-15.2) H 05/06/17 10:52 Plt Count 261 K/mm3 (140-440) 05/06/17 10:52 Lymph % (Auto) 12.3 % (13.4-35.0) L 05/06/17 10:52 [place] % (Auto) 5.9 % (0.0-7.3) 05/06/17 10:52 Eos % (Auto) 0.7 % (0.0-4.3) 05/06/17 10:52 Baso % (Auto) 0.4 % (0.0-1.8) 05/06/17 10:52 Lymph # 2.1 K/mm3 (1.2-5.4) 05/06/17 10:52 [place] # 1.0 K/mm3 (0.0-0.8) H 05/06/17 10:52 Eos # 0.1 K/mm3 (0.0-0.4) 05/06/17 10:52 Baso # 0.1 K/mm3 (0.0-0.1) 05/06/17 10:52 Seg Neutrophils % 80.7 % (40.0-70.0) H 05/06/17 10:52 Seg Neutrophils # 13.9 K/mm3 (1.8-7.7) H 05/06/17 10:52 Sodium 144 mmol/L (137-145) 05/06/17 10:52 Potassium 4.4 mmol/L (3.6-5.0) 05/06/17 10:52 Chloride 99.0 mmol/L (98-107) 05/06/17 10:52 Carbon Dioxide 32 mmol/L (22-30) H 05/06/17 10:52 Anion Gap 17 mmol/L 05/06/17 10:52 BUN 51 mg/dL (7-17) H 05/06/17 10:52 Creatinine 2.9 mg/dL (0.7-1.2) H 05/06/17 10:52 Estimated GFR 16 ml/min 05/06/17 10:52 BUN/Creatinine Ratio 18 % 05/06/17 10:52 Glucose 173 mg/dL (65-100) H 05/06/17 10:52 Calcium 9.0 mg/dL (8.4-10.2) 05/06/17 10:52 Troponin T 0.195 ng/mL (0.00-0.029) H* 05/06/17 10:52 Triglycerides 77 mg/dL (2-149) 05/06/17 10:52 Cholesterol 98 mg/dL (50-199) 05/06/17 10:52 LDL Cholesterol Direct 50 mg/dL (50-130) 05/06/17 10:52 HDL Cholesterol 33 mg/dL (40-59) L 05/06/17 10:52 Cholesterol/HDL Ratio 2.96 % 05/06/17 10:52 Short CBC 05/06/17 05/07/17 Range/Units 10:52 04:34 WBC 17.2 H 12.5 H (4.5-11.0) K/mm3 Hgb 11.5 10.3 (10.1-14.3) gm/dl Hct 34.4 31.2 (30.3-42.9) % Plt Count 261 221 (140-440) K/mm3 BMP 05/06/17 05/07/17 10:52 04:34 Sodium 144 143 Potassium 4.4 4.6 Chloride 99.0 99.0 Carbon Dioxide 32 H 31 H BUN 51 H 59 H Creatinine 2.9 H 3.0 H Glucose 173 H 139 H Calcium 9.0 7.9 L Cardiac Enzymes 05/06/17 Range/Units 10:52 Troponin T 0.195 H* (0.00-0.029) ng/mL Liver Function 05/07/17 Range/Units 04:34 Total Bilirubin 0.40 (0.1-1.2) mg/dL AST 15 (5-40) units/L ALT 9 (7-56) units/L Alkaline Phosphatase 70 (35-129) units/L Albumin 3.0 L (3.9-5) g/dL - Imaging and Cardiology EKG: report reviewed (SR LAFB HR 75) Chest x-ray: report reviewed (NAF) Assessment and Plan Advance Directives: Yes (full code) VTE prophylaxis?: Chemical Plan of care discussed with patient/family: Yes - Patient Problems (1) Acute CHF Current Visit: Yes Status: Acute Qualifiers: Congestive heart failure type: combined Qualified Code(s): I50.41 - Acute combined systolic (congestive) and diastolic (congestive) heart failure Plan to address problem: Sec to Fluid retention.Increased Ultrafiltrtion during HD for Fluid removal. (2) ESRD needing dialysis Current Visit: Yes Status: Chronic Plan to address problem: Nephrology consulted (3) IDDM (insulin dependent diabetes mellitus) Current Visit: Yes Status: Chronic Plan to address problem: Cont HJome Insulin and coverage (4) COPD (chronic obstructive pulmonary disease) Current Visit: Yes Status: Chronic Qualifiers: COPD type: C Chronic bronchitis type: C Emphysema type: unspecified Qualified Code(s): J43.9 - Emphysema, unspecified Plan to address problem: Cont Budesonide and Duonebs (5) HLD (hyperlipidemia) Current Visit: Yes Status: Chronic Qualifiers: Hyperlipidemia type: mixed hyperlipidemia Qualified Code(s): E78.2 - Mixed hyperlipidemia Plan to address problem: Cont statins (6) Hypothyroidism (acquired) Current Visit: Yes Status: Chronic Plan to address problem: Cont synthyroid (7) HTN (hypertension) Current Visit: Yes Status: Chronic Qualifiers: Hypertension type: essential hypertension Qualified Code(s): I10 - Essential (primary) hypertension Plan to address problem: Cont Antihyperensives Carvedilol (8) GERD (gastroesophageal reflux disease) Current Visit: Yes Status: Chronic Qualifiers: Esophagitis presence: without esophagitis Qualified Code(s): K21.9 - Gastro -esophageal reflux disease without esophagitis Plan to address problem: Cont protonix (9) DVT prophylaxis Current Visit: Yes Status: Acute Plan to address problem: On Heparin Sub q
[2017-05-06] MEDS ORDERED: DULCOLAX PR PRN (16:16)
[2017-05-06] MEDS ORDERED: PERCOCET 5/325 PO PRN (16:16)
[2017-05-06] MEDS ORDERED: TYLENOL PO PRN (16:16)
[2017-05-06] MEDS ORDERED: ZOFRAN IV PRN (16:16)
[2017-05-06] MEDS ORDERED: AMBIEN PO PRN (16:16)
[2017-05-06] MEDS ORDERED: MORPHINE IV PRN ×2 (16:16→16:28)
[2017-05-06] MEDS ORDERED: MILK OF MAGNESIA PO PRN (16:16)
[2017-05-06] MEDS ORDERED: NACL 0.9 (PRIMING MACHINE ONLY DIALYSIS) MC ONE (20:42)
[2017-05-06] MEDS: PULMICORT IH SCH (22:13)
[2017-05-06] MEDS: NEURONTIN PO SCH (23:03)
[2017-05-06] MEDS: PEPCID PO SCH (23:03)
[2017-05-06] MEDS: NOVOLOG SUB-Q SCH (23:07)
[2017-05-06] MEDS: COREG PO SCH (23:07)
[2017-05-06] MEDS: HEPARIN SUB-Q SCH (23:08)
[2017-05-06] MEDS: LEVEMIR SUB-Q SCH (23:14)
[2017-05-06] MEDS: HEPARIN IV PRN (23:42)
[2017-05-07 05:23] LABS: Basophils % (Auto) 0.7 % (0.0-1.8); Eosinophils % (Auto) 2.6 % (0.0-4.3); Hematocrit 31.2 % (30.3-42.9); Hemoglobin 10.3 gm/dl (10.1-14.3); Mean Corpuscular HGB Conc 33 % (30-34); Mean Corpuscular Hemoglobin 29 pg (28-32); Mean Corpuscular Volume 89 fl (79-97); Platelet Count 221 K/mm3 (140-440); Red Blood Count 3.51 M/mm3 (3.65-5.03); Red Cell Distribution Width 15.9 % (13.2-15.2); White Blood Count 12.5 K/mm3 (4.5-11.0)
[2017-05-07 05:47] LABS: Albumin/Globulin Ratio 0.9 %; Bilirubin,Total 0.4 mg/dL (0.1-1.2); Calcium 7.9 mg/dL (8.4-10.2); Potassium 4.6 mmol/L (3.6-5.0); Total Protein 6.3 g/dL (6.3-8.2)
[2017-05-07] MEDS: SYNTHROID PO SCH (06:24)
[2017-05-07] MEDS: NOVOLOG SUB-Q SCH ×4 (07:30→21:58)
--- NOTE | 2017-05-07 09:20 | Progress Note ---
Assessment and Plan - Patient Problems (1) ESRD needing dialysis Current Visit: Yes Status: Chronic Plan to address problem: Hemodialysis today. Patient had Isolated UF yesterday. (2) Anemia of renal disease Current Visit: No Status: Chronic Plan to address problem: Epogen if needed. (3) Chronic respiratory failure with hypoxia Current Visit: Yes Status: Chronic Plan to address problem: Continue O2. (4) Pleural effusion, left Current Visit: Yes Status: Chronic Plan to address problem: Thoracentesis. Subjective Date of service: 05/07/17 Interval history: Patient is feeling better today. Objective - Vital Signs Vital signs: Vital Signs - 12hr 05/06/17 05/06/17 05/07/17 22:00 23:07 04:45 Temperature 98.4 F Pulse Rate 55 L 60 Pulse Rate [ 54 L Left Radial] Respiratory 19 18 Rate Blood Pressure 116/45 Blood Pressure 167/64 [Left] O2 Sat by Pulse 99 100 Oximetry 05/07/17 09:16 Temperature 97.6 F Pulse Rate 64 Pulse Rate [ Left Radial] Respiratory 20 Rate Blood Pressure Blood Pressure 127/54 [Left] O2 Sat by Pulse 97 Oximetry - General Appearance General appearance: well-developed, well-nourished, appears stated age, obese, other (no distress, right IJ tunnel catheter) EENT: ATNC, PERRL, mucous membranes moist, hearing intact, vision intact Neck: supple Respiratory: Present: Clear to Ascultation, Decreased Breath Sounds (left side) Cardiology: regular, S1S2, no murmurs Gastrointestinal: normoactive bowel sounds, no tenderness, no distended Integumentary: no rash, warm and dry Neurologic: no focal deficit, no asterixis Musculoskeletal: other (left arm AVG, no edema) Psychiatric: mood/affect appropriate, cooperative - Lab 05/07/17 04:34 05/07/17 04:34 Most recent lab results Calcium 7.9 mg/dL (8.4-10.2) L 05/07/17 04:34
[2017-05-07] MEDS: PULMICORT IH SCH ×2 (09:42→20:46)
[2017-05-07] MEDS: HEPARIN SUB-Q SCH ×2 (09:57→22:00)
[2017-05-07] MEDS: PROTONIX PO SCH (09:59)
[2017-05-07] MEDS: IMDUR PO SCH (09:59)
[2017-05-07] MEDS: COREG PO SCH ×2 (10:00→22:01)
[2017-05-07] MEDS: HALFPRIN EC PO SCH (10:00)
[2017-05-07] MEDS: PEPCID PO SCH ×2 (10:00→21:59)
--- NOTE | 2017-05-07 10:36 | Progress Note ---
Assessment and Plan Assessment and plan: 81 years old obese female who came from [place] after [place] as unable to get dialysis there; she has multiple chronic conditions - ESRD on HD, CHF, CAD, HTN, DM, COPD, HPL, hypothyroidism and was recently admitted for shortness of breath; was dialyzed and discharged home; during that hospitalization was also diagnosed with pleural effusion which was not addressed ; now returned for worsening shortness of breath 1. Acute on chronic systolic heart failure Likely secondary to fluid retention HD with ultrafiltration Continue beta rosita, nitrate 2. Left pleural effusion Possible secondary to heart failure Exclude other etiologies Obtain ultrasound-guided thoracentesis with pleural fluid studies Consult pulmonary 9. ESRD on HD Nephrology consulted and HD resumed 3. CAD Status post PCI with stent placement On beta rosita, nitrate, on antiplatelet therapy and statin 4. HTN BP controlled on above mentioned medications 5. PVD Status post left BKA 6. COPD On home oxygen Continue inhaled bronchodilators, supplemental oxygen, NIPPV as needed 7. DM On long acting insulin and short-acting with meals Accu-Cheks and SSI Assess insulin requirements and make adjustments if needed 8. HPL Continue statin 10. Hypothyroidism On Synthroid 11. Obesity 12. Malnutrition Mild protein calorie malnutrition Diet supplementation 13. DVT/GI prophylaxis History Interval history: c/o SOB; s/p HD with UF yesterday, scheduled for additional HD today Hospitalist Physical - Constitutional Vitals: Temp Pulse Resp BP Pulse Ox 97.6 F 64 18 127/54 97 05/07/17 09:16 05/07/17 09:59 05/07/17 09:43 05/07/17 09:59 05/07/17 09:16 General appearance: Present: mild distress, obese - EENT Eyes: Present: PERRL, EOM intact. Absent: scleral icterus, conjunctival injection - Neck Neck: Present: supple. Absent: masses or JVD, carotid bruits - Respiratory Respiratory effort: labored Respiratory: bilateral: diminished (L>R), rales, negative: wheezing - Cardiovascular Rhythm: regular Heart Sounds: Present: S1 & S2. Absent: systolic murmur - Extremities Extremities: no ischemia, abnormal (L BKA) - Abdominal General gastrointestinal: soft, non-tender, non-distended, normal bowel sounds - Psychiatric Psychiatric: cooperative - Neurologic Neurologic: CNII-XII intact, moves all extremities Results - Labs CBC & Chem 7: 10/19/17 04:34 05/07/17 04:34 Labs: Laboratory Last Values WBC 12.5 K/mm3 (4.5-11.0) H 05/07/17 04:34 RBC 3.51 M/mm3 (3.65-5.03) L 05/07/17 04:34 Hgb 10.3 gm/dl (10.1-14.3) 05/07/17 04:34 Hct 31.2 % (30.3-42.9) 05/07/17 04:34 MCV 89 fl (79-97) 05/07/17 04:34 MCH 29 pg (28-32) 05/07/17 04:34 MCHC 33 % (30-34) 05/07/17 04:34 RDW 15.9 % (13.2-15.2) H 05/07/17 04:34 Plt Count 221 K/mm3 (140-440) 05/07/17 04:34 Lymph % (Auto) 18.7 % (13.4-35.0) 05/07/17 04:34 [place] % (Auto) 7.1 % (0.0-7.3) 05/07/17 04:34 Eos % (Auto) 2.6 % (0.0-4.3) 05/07/17 04:34 Baso % (Auto) 0.7 % (0.0-1.8) 05/07/17 04:34 Lymph # 2.3 K/mm3 (1.2-5.4) 05/07/17 04:34 [place] # 0.9 K/mm3 (0.0-0.8) H 05/07/17 04:34 Eos # 0.3 K/mm3 (0.0-0.4) 05/07/17 04:34 Baso # 0.1 K/mm3 (0.0-0.1) 05/07/17 04:34 Seg Neutrophils % 70.9 % (40.0-70.0) H 05/07/17 04:34 Seg Neutrophils # 8.8 K/mm3 (1.8-7.7) H 05/07/17 04:34 Sodium 143 mmol/L (137-145) 05/07/17 04:34 Potassium 4.6 mmol/L (3.6-5.0) 05/07/17 04:34 Chloride 99.0 mmol/L (98-107) 05/07/17 04:34 Carbon Dioxide 31 mmol/L (22-30) H 05/07/17 04:34 Anion Gap 18 mmol/L 05/07/17 04:34 BUN 59 mg/dL (7-17) H 05/07/17 04:34 Creatinine 3.0 mg/dL (0.7-1.2) H 05/07/17 04:34 Estimated GFR 15 ml/min 05/07/17 04:34 BUN/Creatinine Ratio 20 % 05/07/17 04:34 Glucose 139 mg/dL (65-100) H 05/07/17 04:34 POC Glucose 109 (70-105) H 05/07/17 07:14 Hemoglobin A1c 6.9 % (4-6) H 05/07/17 04:34 Calcium 7.9 mg/dL (8.4-10.2) L 05/07/17 04:34 Total Bilirubin 0.40 mg/dL (0.1-1.2) 05/07/17 04:34 AST 15 units/L (5-40) 05/07/17 04:34 ALT 9 units/L (7-56) 05/07/17 04:34 Alkaline Phosphatase 70 units/L (35-129) 05/07/17 04:34 Troponin T 0.195 ng/mL (0.00-0.029) H* 05/06/17 10:52 Total Protein 6.3 g/dL (6.3-8.2) 05/07/17 04:34 Albumin 3.0 g/dL (3.9-5) L 05/07/17 04:34 Albumin/Globulin Ratio 0.9 % 05/07/17 04:34 Triglycerides 77 mg/dL (2-149) 05/06/17 10:52 Cholesterol 98 mg/dL (50-199) 05/06/17 10:52 LDL Cholesterol Direct 50 mg/dL (50-130) 05/06/17 10:52 HDL Cholesterol 33 mg/dL (40-59) L 05/06/17 10:52 Cholesterol/HDL Ratio 2.96 % 05/06/17 10:52 - Imaging and Cardiology Chest x-ray: image reviewed (left pleural effusion)
[2017-05-07] MEDS ORDERED: NACL 0.9% 100 ML IV PRN (11:03)
[2017-05-07 16:09] LABS: INR 1.26 (0.87-1.13)
[2017-05-07] MEDS: NEURONTIN PO SCH (21:59)
[2017-05-07] MEDS: LEVEMIR SUB-Q SCH (22:04)
[2017-05-08] MEDS: SYNTHROID PO SCH (05:50)
[2017-05-08] MEDS: NOVOLOG SUB-Q SCH ×4 (07:30→22:01)
--- NOTE | 2017-05-08 08:31 | Progress Note ---
Assessment and Plan - Patient Problems (1) ESRD needing dialysis Current Visit: Yes Status: Chronic Plan to address problem: Hemodialysis tomorrow. (2) Anemia of renal disease Current Visit: No Status: Chronic Plan to address problem: Epogen if needed. (3) Chronic respiratory failure with hypoxia Current Visit: Yes Status: Chronic Plan to address problem: Continue O2. (4) Pleural effusion, left Current Visit: Yes Status: Chronic Plan to address problem: Thoracentesis. Subjective Date of service: 05/08/17 Interval history: Patient is feeling better. Objective - Vital Signs Vital signs: Vital Signs - 12hr 05/07/17 05/07/17 05/07/17 20:46 20:55 23:22 Temperature 98.6 F Pulse Rate 72 Pulse Rate [ 58 L 59 L Anterior Bilateral Throughout] Respiratory 18 Rate Respiratory 18 18 Rate [Anterior Bilateral Throughout] Blood Pressure 124/46 [Left] O2 Sat by Pulse 100 99 Oximetry 05/08/17 05/08/17 00:00 04:43 Temperature 98.2 F Pulse Rate 62 Pulse Rate [ Anterior Bilateral Throughout] Respiratory 18 Rate Respiratory Rate [Anterior Bilateral Throughout] Blood Pressure 114/58 [Left] O2 Sat by Pulse 98 100 Oximetry - General Appearance General appearance: well-developed, well-nourished, appears stated age, obese, other (right IJ tunnel catheter, not in distress) EENT: ATNC, PERRL, mucous membranes moist, hearing intact, vision intact Neck: supple Respiratory: Present: Clear to Ascultation, Decreased Breath Sounds (left base) Cardiology: regular, S1S2, no murmurs Gastrointestinal: normoactive bowel sounds, no tenderness, obese Integumentary: no rash Neurologic: no focal deficit, no asterixis, CN 3-12 intact Musculoskeletal: other (left arm AVG, left BKA, no edema) Psychiatric: mood/affect appropriate, cooperative - Lab 05/07/17 04:34 05/07/17 04:34 Most recent lab results Calcium 7.9 mg/dL (8.4-10.2) L 05/07/17 04:34
[2017-05-08] MEDS: HALFPRIN EC PO SCH ×2 (08:51→10:00)
[2017-05-08] MEDS: IMDUR PO SCH ×2 (08:52→10:00)
[2017-05-08] MEDS: PEPCID PO SCH ×2 (08:53→10:00)
[2017-05-08] MEDS: PROTONIX PO SCH ×2 (08:53→10:00)
[2017-05-08] MEDS: PULMICORT IH SCH ×2 (09:02→19:34)
[2017-05-08] MEDS: COREG PO SCH ×2 (10:00→22:09)
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
--- NOTE | 2017-05-08 11:18 | Procedure Note ---
Date of procedure: 05/08/17 Pre-op diagnosis: Lt pleural effusion Post-op diagnosis: same Procedure: US guided left thoracentesis. Findings: 800 cc yellow serous fluid removed. Anesthesia: local Surgeon: NURIA WALLIS Estimated blood loss: none Specimen disposition: to lab Condition: stable Disposition: floor (2 hr post proc CXR ordered.)
--- NOTE | 2017-05-08 11:19 | Ultrasound Report ---
ULTRASOUND THORACENTESIS INDICATION: Left pleural effusion. COMPARISON: None similar. FINDINGS: Ultrasound guided left thoracentesis performed. Written informed consent obtained after explaining the risks and benefits. Patient brought in the ultrasound room. An appropriate skin site marked. Using standard sterile precautions and 1% lidocaine for local anesthesia, 5 [place] Yueh catheter advanced into the pleural fluid. Total of approximately 800 cc of yellow serous fluid obtained with sample sent to the lab. Catheter removed and hemostasis achieved. Patient returned to room. No immediate complications. CONCLUSION: Status post left thoracentesis, as described. A 2 hour post procedure chest x-ray ordered. Dr. Perez present for and performed the entire procedure. Thank you for the opportunity to participate in this patient's care.
[2017-05-08 11:40] LABS: Basophils Body Fluid 0 %; Monocytes Body Fluid 6.5 %; Reactive Lymph Body Fluid 0 %; Seg Neutrophils Body Fluid 8.5 %
--- NOTE | 2017-05-08 12:24 | XRay Report ---
Single view chest: History: Post left thoracentesis. Findings: Cardiomegaly. Trachea is midline. Stable right large bore venous catheter. No consolidation, pleural effusion or pneumothorax. Impression: No evidence of pneumothorax.
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
[2017-05-08] MEDS: HEPARIN SUB-Q SCH ×2 (13:37→22:10)
[2017-05-08] MEDS ORDERED: NACL 0.9% 100 ML IV PRN (18:30)
[2017-05-08] MEDS: NEURONTIN PO SCH (22:08)
[2017-05-08] MEDS: LEVEMIR SUB-Q SCH (22:10)
[2017-05-09] MEDS: SYNTHROID PO SCH (05:30)
[2017-05-09] MEDS: NOVOLOG SUB-Q SCH ×4 (07:30→22:42)
[2017-05-09] MEDS: PULMICORT IH SCH ×2 (07:31→20:28)
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
[2017-05-09] MEDS: HALFPRIN EC PO SCH (09:56)
[2017-05-09] MEDS: PROTONIX PO SCH (09:57)
[2017-05-09] MEDS: HEPARIN SUB-Q SCH ×2 (09:59→22:59)
[2017-05-09] MEDS: IMDUR PO SCH (10:00)
[2017-05-09] MEDS: COREG PO SCH ×2 (10:00→22:43)
--- NOTE | 2017-05-09 10:17 | Progress Note ---
Assessment and Plan - Patient Problems (1) Acute CHF Current Visit: Yes Status: Acute Qualifiers: Congestive heart failure type: combined Qualified Code(s): I50.41 - Acute combined systolic (congestive) and diastolic (congestive) heart failure (2) COPD (chronic obstructive pulmonary disease) Current Visit: Yes Status: Chronic Qualifiers: COPD type: C Chronic bronchitis type: C Emphysema type: unspecified Qualified Code(s): J43.9 - Emphysema, unspecified (3) Chronic respiratory failure with hypoxia Current Visit: Yes Status: Chronic (4) ESRD needing dialysis Current Visit: Yes Status: Chronic (5) GERD (gastroesophageal reflux disease) Current Visit: Yes Status: Chronic Qualifiers: Esophagitis presence: without esophagitis Qualified Code(s): K21.9 - Gastro -esophageal reflux disease without esophagitis Subjective Interval history: improving Objective Vital Signs - 12hr 05/09/17 05/09/17 05/09/17 05:38 07:31 08:00 Temperature 79.4 F L 98.1 F Pulse Rate 58 L 63 Respiratory 18 18 Rate Blood Pressure 115/51 122/51 [Left] O2 Sat by Pulse 98 96 97 Oximetry Constitutional: no acute distress, alert Eyes: non-icteric ENT: oropharynx moist Neck: supple, no lymphadenopathy, no JVD Ascultation: Right: clear, Left: diminished breath sounds, rales, rhonchi Cardiovascular: regular rate and rhythm Gastrointestinal: normoactive bowel sounds, non-distended Extremities: no cyanosis, no edema, other (left BKA) Neurologic: normal mental status, non-focal exam Psychiatric: mood appropriate CBC and BMP: 05/07/17 04:34 05/07/17 04:34 ABG, PT/INR, D-dimer: PT/INR, D-dimer PT 16.4 Sec. (12.2-14.9) H 05/07/17 15:07 INR 1.26 (0.87-1.13) H 05/07/17 15:07 Abnormal lab findings: Abnormal Labs 05/07/17 05/07/17 05/07/17 04:34 04:34 04:34 WBC 12.5 H RBC 3.51 L RDW 15.9 H [place] # 0.9 H Seg Neutrophils % 70.9 H Seg Neutrophils # 8.8 H PT INR Carbon Dioxide 31 H BUN 59 H Creatinine 3.0 H Glucose 139 H POC Glucose Hemoglobin A1c 6.9 H Calcium 7.9 L Albumin 3.0 L 05/07/17 05/07/17 05/07/17 07:14 12:01 15:07 WBC RBC RDW [place] # Seg Neutrophils % Seg Neutrophils # PT 16.4 H INR 1.26 H Carbon Dioxide BUN Creatinine Glucose POC Glucose 109 H 158 H Hemoglobin A1c Calcium Albumin 05/07/17 05/08/17 05/08/17 21:44 12:19 17:01 WBC RBC RDW [place] # Seg Neutrophils % Seg Neutrophils # PT INR Carbon Dioxide BUN Creatinine Glucose POC Glucose 255 H 178 H 117 H Hemoglobin A1c Calcium Albumin 05/08/17 20:53 WBC RBC RDW [place] # Seg Neutrophils % Seg Neutrophils # PT INR Carbon Dioxide BUN Creatinine Glucose POC Glucose 135 H Hemoglobin A1c Calcium Albumin Chest x-ray: report reviewed, image reviewed
--- NOTE | 2017-05-09 10:55 | Progress Note ---
Assessment and Plan ESRD - HD today F/u labs & continue Mx Subjective Date of service: 05/09/17 Objective - Vital Signs Vital signs: Vital Signs - 12hr 05/09/17 05/09/17 05/09/17 05:38 07:31 08:00 Temperature 79.4 F L 98.1 F Pulse Rate 58 L 63 Pulse Rate [ Left Radial] Respiratory 18 18 Rate Blood Pressure 115/51 122/51 [Left] O2 Sat by Pulse 98 96 97 Oximetry 05/09/17 10:00 Temperature Pulse Rate Pulse Rate [ 63 Left Radial] Respiratory 18 Rate Blood Pressure [Left] O2 Sat by Pulse 97 Oximetry - General Appearance General appearance: other (Awake & alert) Neck: no JVD Respiratory: Present: Clear to Ascultation Cardiology: regular, S1S2 Gastrointestinal: normal - Lab 05/07/17 04:34 05/07/17 04:34 Most recent lab results Calcium 7.9 mg/dL (8.4-10.2) L 05/07/17 04:34
[2017-05-09] MEDS ORDERED: NACL 0.9 (PRIMING MACHINE ONLY DIALYSIS) MC ONE (13:23)
[2017-05-09] MEDS: HEPARIN IV PRN (14:10)
[2017-05-09] MEDS ORDERED: PROCRIT ONE (14:22)
[2017-05-09] MEDS ORDERED: PROCRIT IV PRN (14:47)
[2017-05-09] MEDS: NEURONTIN PO SCH (22:59)
[2017-05-09] MEDS: LEVEMIR SUB-Q SCH (23:00)
[2017-05-10 04:46] LABS: Basophils % (Auto) 0.8 % (0.0-1.8); Eosinophils % (Auto) 4.9 % (0.0-4.3); Hematocrit 31.8 % (30.3-42.9); Hemoglobin 10.7 gm/dl (10.1-14.3); Mean Corpuscular HGB Conc 34 % (30-34); Mean Corpuscular Hemoglobin 29 pg (28-32); Mean Corpuscular Volume 87 fl (79-97); Platelet Count 217 K/mm3 (140-440); Red Blood Count 3.64 M/mm3 (3.65-5.03); Red Cell Distribution Width 15.9 % (13.2-15.2)
[2017-05-10 05:40] LABS: BUN/Creatinine Ratio TNR; Blood Urea Nitrogen TNR mg/dL (7-17); Carbon Dioxide TNR mmol/L (22-30); Chloride TNR mmol/L (98-107); Potassium TNR mmol/L (3.6-5.0); Sodium TNR mmol/L (137-145)
[2017-05-10 05:41] LABS: Anion Gap TNR mmol/L; Calcium TNR mg/dL (8.4-10.2); Glucose TNR mg/dL (65-100); Magnesium TNR mg/dL (1.7-2.3); Phosphorous TNR mg/dL (2.5-4.5)
[2017-05-10] MEDS: SYNTHROID PO SCH (06:08)
[2017-05-10 06:25] LABS: Calcium 8.3 mg/dL (8.4-10.2); Chloride 100.6 mmol/L (98-107); Potassium 4.6 mmol/L (3.6-5.0)
[2017-05-10] MEDS: PULMICORT IH SCH ×2 (08:13→19:53)
[2017-05-10] MEDS: NOVOLOG SUB-Q SCH ×4 (08:33→22:57)
[2017-05-10] MEDS: HEPARIN SUB-Q SCH ×2 (09:36→23:12)
[2017-05-10] MEDS: HALFPRIN EC PO SCH (09:38)
[2017-05-10] MEDS: PROTONIX PO SCH (09:39)
[2017-05-10] MEDS: IMDUR PO SCH (09:42)
[2017-05-10] MEDS: COREG PO SCH ×2 (09:42→23:15)
--- NOTE | 2017-05-10 10:39 | Progress Note ---
Assessment and Plan ESRD - Tolerated HD yesterday. Next HD HTN - Stable Lytes - F/u labs Subjective Date of service: 05/10/17 Objective - Vital Signs Vital signs: Vital Signs - 12hr 05/09/17 05/10/17 05/10/17 22:43 04:00 08:14 Temperature 98.1 F Pulse Rate 67 Pulse Rate [ 70 Anterior Bilateral Throughout] Respiratory 18 Rate Respiratory 18 Rate [Anterior Bilateral Throughout] Blood Pressure 97/77 Blood Pressure 108/77 [Left] O2 Sat by Pulse Oximetry 05/10/17 05/10/17 05/10/17 08:15 08:21 09:42 Temperature Pulse Rate 77 Pulse Rate [ 69 Anterior Bilateral Throughout] Respiratory Rate Respiratory 18 Rate [Anterior Bilateral Throughout] Blood Pressure 104/59 Blood Pressure [Left] O2 Sat by Pulse 96 Oximetry - General Appearance General appearance: other (Awake & responsive) Neck: no JVD Respiratory: Present: Clear to Ascultation Cardiology: regular, S1S2 Gastrointestinal: normal Integumentary: other (Lt BKA with healed stump) - Lab 05/10/17 04:03 05/10/17 05:50 Most recent lab results Calcium 8.3 mg/dL (8.4-10.2) L 05/10/17 05:50 Phosphorus TNR 05/10/17 04:03 Magnesium TNR 05/10/17 04:03
--- NOTE | 2017-05-10 11:19 | Progress Note ---
Assessment and Plan - Patient Problems (1) Acute CHF Current Visit: Yes Status: Acute Qualifiers: Congestive heart failure type: combined Qualified Code(s): I50.41 - Acute combined systolic (congestive) and diastolic (congestive) heart failure (2) COPD (chronic obstructive pulmonary disease) Current Visit: Yes Status: Chronic Qualifiers: COPD type: C Chronic bronchitis type: C Emphysema type: unspecified Qualified Code(s): J43.9 - Emphysema, unspecified (3) Chronic respiratory failure with hypoxia Current Visit: Yes Status: Chronic (4) ESRD needing dialysis Current Visit: Yes Status: Chronic (5) GERD (gastroesophageal reflux disease) Current Visit: Yes Status: Chronic Qualifiers: Esophagitis presence: without esophagitis Qualified Code(s): K21.9 - Gastro -esophageal reflux disease without esophagitis Objective Vital Signs - 12hr 05/10/17 05/10/17 05/10/17 04:00 08:14 08:15 Temperature 98.1 F Pulse Rate 67 Pulse Rate [ 70 Anterior Bilateral Throughout] Respiratory 18 Rate Respiratory 18 Rate [Anterior Bilateral Throughout] Blood Pressure Blood Pressure 108/77 [Left] O2 Sat by Pulse 96 Oximetry 05/10/17 05/10/17 08:21 09:42 Temperature Pulse Rate 77 Pulse Rate [ 69 Anterior Bilateral Throughout] Respiratory Rate Respiratory 18 Rate [Anterior Bilateral Throughout] Blood Pressure 104/59 Blood Pressure [Left] O2 Sat by Pulse Oximetry Constitutional: no acute distress, alert Eyes: non-icteric ENT: oropharynx moist Neck: supple, no lymphadenopathy, no JVD Ascultation: Right: clear, Left: diminished breath sounds, rales, rhonchi Cardiovascular: regular rate and rhythm Gastrointestinal: normoactive bowel sounds, non-distended Extremities: no cyanosis, no edema, other (left BKA) Neurologic: normal mental status, non-focal exam Psychiatric: mood appropriate CBC and BMP: 05/10/17 04:03 05/10/17 05:50 ABG, PT/INR, D-dimer: PT/INR, D-dimer PT 16.4 Sec. (12.2-14.9) H 05/07/17 15:07 INR 1.26 (0.87-1.13) H 05/07/17 15:07 Abnormal lab findings: Abnormal Labs 05/07/17 05/07/17 05/07/17 04:34 04:34 04:34 WBC 12.5 H RBC 3.51 L RDW 15.9 H [place] % (Auto) Eos % (Auto) [place] # 0.9 H Eos # Seg Neutrophils % 70.9 H Seg Neutrophils # 8.8 H PT INR Carbon Dioxide 31 H BUN 59 H Creatinine 3.0 H Glucose 139 H POC Glucose Hemoglobin A1c 6.9 H Calcium 7.9 L Albumin 3.0 L 05/07/17 05/07/17 05/07/17 07:14 12:01 15:07 WBC RBC RDW [place] % (Auto) Eos % (Auto) [place] # Eos # Seg Neutrophils % Seg Neutrophils # PT 16.4 H INR 1.26 H Carbon Dioxide BUN Creatinine Glucose POC Glucose 109 H 158 H Hemoglobin A1c Calcium Albumin 05/07/17 05/08/17 05/08/17 21:44 12:19 17:01 WBC RBC RDW [place] % (Auto) Eos % (Auto) [place] # Eos # Seg Neutrophils % Seg Neutrophils # PT INR Carbon Dioxide BUN Creatinine Glucose POC Glucose 255 H 178 H 117 H Hemoglobin A1c Calcium Albumin 05/08/17 05/09/17 05/09/17 20:53 15:27 16:42 WBC RBC RDW [place] % (Auto) Eos % (Auto) [place] # Eos # Seg Neutrophils % Seg Neutrophils # PT INR Carbon Dioxide BUN Creatinine Glucose POC Glucose 135 H 206 H 255 H Hemoglobin A1c Calcium Albumin 05/09/17 05/10/17 05/10/17 22:31 04:03 05:50 WBC RBC 3.64 L RDW 15.9 H [place] % (Auto) 10.2 H Eos % (Auto) 4.9 H [place] # 1.1 H Eos # 0.5 H Seg Neutrophils % Seg Neutrophils # PT INR Carbon Dioxide BUN 37 H Creatinine 2.6 H Glucose 134 H POC Glucose 140 H Hemoglobin A1c Calcium 8.3 L Albumin 05/10/17 07:21 WBC RBC RDW [place] % (Auto) Eos % (Auto) [place] # Eos # Seg Neutrophils % Seg Neutrophils # PT INR Carbon Dioxide BUN Creatinine Glucose POC Glucose 123 H Hemoglobin A1c Calcium Albumin
--- NOTE | 2017-05-10 13:01 | Progress Note ---
Assessment and Plan - Patient Problems (1) Acute CHF Current Visit: Yes Status: Acute Qualifiers: Congestive heart failure type: combined Qualified Code(s): I50.41 - Acute combined systolic (congestive) and diastolic (congestive) heart failure (2) COPD (chronic obstructive pulmonary disease) Current Visit: Yes Status: Chronic Qualifiers: COPD type: C Chronic bronchitis type: C Emphysema type: unspecified Qualified Code(s): J43.9 - Emphysema, unspecified (3) Chronic respiratory failure with hypoxia Current Visit: Yes Status: Chronic (4) ESRD needing dialysis Current Visit: Yes Status: Chronic (5) GERD (gastroesophageal reflux disease) Current Visit: Yes Status: Chronic Qualifiers: Esophagitis presence: without esophagitis Qualified Code(s): K21.9 - Gastro -esophageal reflux disease without esophagitis Subjective Interval history: no complaints Objective Vital Signs - 12hr 05/10/17 05/10/17 05/10/17 04:00 08:14 08:15 Temperature 98.1 F Pulse Rate 67 Pulse Rate [ 70 Anterior Bilateral Throughout] Respiratory 18 Rate Respiratory 18 Rate [Anterior Bilateral Throughout] Blood Pressure Blood Pressure 108/77 [Left] O2 Sat by Pulse 96 Oximetry 05/10/17 05/10/17 05/10/17 08:21 09:42 10:00 Temperature Pulse Rate 77 Pulse Rate [ 69 Anterior Bilateral Throughout] Respiratory 18 Rate Respiratory 18 Rate [Anterior Bilateral Throughout] Blood Pressure 104/59 Blood Pressure [Left] O2 Sat by Pulse 96 Oximetry Constitutional: no acute distress, alert Eyes: non-icteric ENT: oropharynx moist Neck: supple, no lymphadenopathy, no JVD Ascultation: Right: clear, Left: diminished breath sounds, rales, rhonchi Cardiovascular: regular rate and rhythm Gastrointestinal: normoactive bowel sounds, non-distended Extremities: no cyanosis, no edema, other (left BKA) Neurologic: normal mental status, non-focal exam Psychiatric: mood appropriate CBC and BMP: 05/10/17 04:03 05/10/17 05:50 ABG, PT/INR, D-dimer: PT/INR, D-dimer PT 16.4 Sec. (12.2-14.9) H 05/07/17 15:07 INR 1.26 (0.87-1.13) H 05/07/17 15:07 Abnormal lab findings: Abnormal Labs 05/07/17 05/07/17 05/07/17 04:34 04:34 04:34 WBC 12.5 H RBC 3.51 L RDW 15.9 H [place] % (Auto) Eos % (Auto) [place] # 0.9 H Eos # Seg Neutrophils % 70.9 H Seg Neutrophils # 8.8 H PT INR Carbon Dioxide 31 H BUN 59 H Creatinine 3.0 H Glucose 139 H POC Glucose Hemoglobin A1c 6.9 H Calcium 7.9 L Albumin 3.0 L 05/07/17 05/07/17 05/07/17 07:14 12:01 15:07 WBC RBC RDW [place] % (Auto) Eos % (Auto) [place] # Eos # Seg Neutrophils % Seg Neutrophils # PT 16.4 H INR 1.26 H Carbon Dioxide BUN Creatinine Glucose POC Glucose 109 H 158 H Hemoglobin A1c Calcium Albumin 05/07/17 05/08/17 05/08/17 21:44 12:19 17:01 WBC RBC RDW [place] % (Auto) Eos % (Auto) [place] # Eos # Seg Neutrophils % Seg Neutrophils # PT INR Carbon Dioxide BUN Creatinine Glucose POC Glucose 255 H 178 H 117 H Hemoglobin A1c Calcium Albumin 05/08/17 05/09/17 05/09/17 20:53 15:27 16:42 WBC RBC RDW [place] % (Auto) Eos % (Auto) [place] # Eos # Seg Neutrophils % Seg Neutrophils # PT INR Carbon Dioxide BUN Creatinine Glucose POC Glucose 135 H 206 H 255 H Hemoglobin A1c Calcium Albumin 05/09/17 05/10/17 05/10/17 22:31 04:03 05:50 WBC RBC 3.64 L RDW 15.9 H [place] % (Auto) 10.2 H Eos % (Auto) 4.9 H [place] # 1.1 H Eos # 0.5 H Seg Neutrophils % Seg Neutrophils # PT INR Carbon Dioxide BUN 37 H Creatinine 2.6 H Glucose 134 H POC Glucose 140 H Hemoglobin A1c Calcium 8.3 L Albumin 05/10/17 05/10/17 07:21 11:35 WBC RBC RDW [place] % (Auto) Eos % (Auto) [place] # Eos # Seg Neutrophils % Seg Neutrophils # PT INR Carbon Dioxide BUN Creatinine Glucose POC Glucose 123 H 200 H Hemoglobin A1c Calcium Albumin
--- NOTE | 2017-05-10 17:42 | Progress Note ---
Assessment and Plan Assessment and plan: 81 years old obese female who came from [place] after [place] as unable to get dialysis there; she has multiple chronic conditions - ESRD on HD, CHF, CAD, HTN, DM, COPD, HPL, hypothyroidism and was recently admitted for shortness of breath; was dialyzed and discharged home; during that hospitalization was also diagnosed with pleural effusion which was not addressed ; now returned for worsening shortness of breath 1. Acute on chronic systolic heart failure Likely secondary to fluid retention HD with ultrafiltration x2 initially, now back on regular schedule Continue beta rosita, nitrate 2. Left pleural effusion Possible secondary to heart failure Exclude other etiologies S/p ultrasound-guided thoracentesis 05/08 with 800 cc serous fluid removal; some pleural fluid studies still pending Pulmonary following 9. ESRD on HD Nephrology consulted and HD resumed 3. CAD Status post PCI with stent placement On beta rosita, nitrate, on antiplatelet therapy and statin 4. HTN BP controlled on above mentioned medications 5. PVD Status post left BKA 6. COPD On home oxygen Continue inhaled bronchodilators, supplemental oxygen, NIPPV as needed 7. DM On long acting insulin and short-acting with meals Accu-Cheks and SSI Assess insulin requirements and make adjustments if needed 8. HPL Continue statin 10. Hypothyroidism On Synthroid 11. Obesity 12. Malnutrition Mild protein calorie malnutrition Diet supplementation 13. DVT/GI prophylaxis History Interval history: s/p left thoracentesis, doing well Niece, who speaks Serbian, present, updated Hospitalist Physical - Constitutional Vitals: Temp Pulse Resp BP Pulse Ox 98.9 F 69 18 128/54 98 05/10/17 14:01 05/10/17 14:01 05/10/17 14:01 05/10/17 14:01 05/10/17 14:01 General appearance: Present: no acute distress, obese - EENT Eyes: Present: PERRL, EOM intact. Absent: scleral icterus, conjunctival injection - Neck Neck: Present: supple, normal ROM. Absent: masses or JVD - Respiratory Respiratory effort: normal Respiratory: bilateral: CTA, negative: rales, rhonchi - Cardiovascular Rhythm: regular Heart Sounds: Present: S1 & S2. Absent: systolic murmur - Extremities Extremities: no ischemia, abnormal (left BKA) - Abdominal General gastrointestinal: soft, non-tender, non-distended, normal bowel sounds - Psychiatric Psychiatric: cooperative - Neurologic Neurologic: CNII-XII intact, no focal deficits Results - Labs CBC & Chem 7: 05/10/17 04:03 05/10/17 05:50 Labs: Laboratory Last Values WBC 11.0 K/mm3 (4.5-11.0) 05/10/17 04:03 RBC 3.64 M/mm3 (3.65-5.03) L 05/10/17 04:03 Hgb 10.7 gm/dl (10.1-14.3) 05/10/17 04:03 Hct 31.8 % (30.3-42.9) 05/10/17 04:03 MCV 87 fl (79-97) 05/10/17 04:03 MCH 29 pg (28-32) 05/10/17 04:03 MCHC 34 % (30-34) 05/10/17 04:03 RDW 15.9 % (13.2-15.2) H 05/10/17 04:03 Plt Count 217 K/mm3 (140-440) 05/10/17 04:03 Lymph % (Auto) 18.5 % (13.4-35.0) 05/10/17 04:03 [place] % (Auto) 10.2 % (0.0-7.3) H 05/10/17 04:03 Eos % (Auto) 4.9 % (0.0-4.3) H 05/10/17 04:03 Baso % (Auto) 0.8 % (0.0-1.8) 05/10/17 04:03 Lymph # 2.0 K/mm3 (1.2-5.4) 05/10/17 04:03 [place] # 1.1 K/mm3 (0.0-0.8) H 05/10/17 04:03 Eos # 0.5 K/mm3 (0.0-0.4) H 05/10/17 04:03 Baso # 0.1 K/mm3 (0.0-0.1) 05/10/17 04:03 Seg Neutrophils % 65.6 % (40.0-70.0) 05/10/17 04:03 Seg Neutrophils # 7.2 K/mm3 (1.8-7.7) 05/10/17 04:03 PT 16.4 Sec. (12.2-14.9) H 05/07/17 15:07 INR 1.26 (0.87-1.13) H 05/07/17 15:07 Sodium 143 mmol/L (137-145) 05/10/17 05:50 Potassium 4.6 mmol/L (3.6-5.0) 05/10/17 05:50 Chloride 100.6 mmol/L (98-107) 05/10/17 05:50 Carbon Dioxide 29 mmol/L (22-30) 05/10/17 05:50 Anion Gap 18 mmol/L 05/10/17 05:50 BUN 37 mg/dL (7-17) H 05/10/17 05:50 Creatinine 2.6 mg/dL (0.7-1.2) H 05/10/17 05:50 Estimated GFR 18 ml/min 05/10/17 05:50 BUN/Creatinine Ratio 14 % 05/10/17 05:50 Glucose 134 mg/dL (65-100) H 05/10/17 05:50 POC Glucose 226 (70-105) H 05/10/17 16:26 Hemoglobin A1c 6.9 % (4-6) H 05/07/17 04:34 Calcium 8.3 mg/dL (8.4-10.2) L 05/10/17 05:50 Phosphorus TNR 05/10/17 04:03 Magnesium TNR 05/10/17 04:03 Total Bilirubin 0.40 mg/dL (0.1-1.2) 05/07/17 04:34 AST 15 units/L (5-40) 05/07/17 04:34 ALT 9 units/L (7-56) 05/07/17 04:34 Alkaline Phosphatase 70 units/L (35-129) 05/07/17 04:34 Troponin T 0.195 ng/mL (0.00-0.029) H* 05/06/17 10:52 Total Protein 6.3 g/dL (6.3-8.2) 05/07/17 04:34 Albumin 3.0 g/dL (3.9-5) L 05/07/17 04:34 Albumin/Globulin Ratio 0.9 % 05/07/17 04:34 Triglycerides 77 mg/dL (2-149) 05/06/17 10:52 Cholesterol 98 mg/dL (50-199) 05/06/17 10:52 LDL Cholesterol Direct 50 mg/dL (50-130) 05/06/17 10:52 HDL Cholesterol 33 mg/dL (40-59) L 05/06/17 10:52 Cholesterol/HDL Ratio 2.96 % 05/06/17 10:52 Fluid Type Thoracentesis 05/08/17 Unknown Fluid Color Yellow 05/08/17 Unknown Fluid Appearance Hazy 05/08/17 Unknown Fluid WBC 349 /mm3 05/08/17 Unknown Fluid RBC 663 /mm3 05/08/17 Unknown Fluid Seg Neutrophils 8.5 % 05/08/17 Unknown Fluid Lymphocytes 82.0 % 05/08/17 Unknown Fluid Reactive Lymphs 0 % 05/08/17 Unknown Fluid Monocytes 6.5 % 05/08/17 Unknown Fluid Eosinophils 3.0 % 05/08/17 Unknown Fluid Basophils 0 % 05/08/17 Unknown
[2017-05-10] MEDS: LEVEMIR SUB-Q SCH (23:13)
[2017-05-10] MEDS: NEURONTIN PO SCH (23:15)
[2017-05-11 05:15] LABS: Calcium 8.3 mg/dL (8.4-10.2); Chloride 99.8 mmol/L (98-107); Potassium 4.7 mmol/L (3.6-5.0)
[2017-05-11] MEDS: SYNTHROID PO SCH (06:21)
[2017-05-11 07:21] LABS: LDH,Body Fluid 68; Total Protein,Body Fluid < 3.0 (15.0-45.0); Triglycerides,Body Fluid 15
--- NOTE | 2017-05-11 07:35 | Progress Note ---
Assessment and Plan - Patient Problems (1) ESRD needing dialysis Status: Chronic Plan to address problem: Hemodialysis tomorrow. (2) Anemia of renal disease Status: Chronic Plan to address problem: Epogen if needed. (3) Chronic respiratory failure with hypoxia Status: Chronic Plan to address problem: Continue O2. (4) Pleural effusion, left Status: Chronic Plan to address problem: S/p thoracentesis. Subjective Date of service: 05/11/17 Interval history: Patient is feeling better. Objective - Vital Signs Vital signs: Vital Signs - 12hr 05/10/17 05/10/17 05/10/17 19:53 19:55 20:05 Temperature Pulse Rate Pulse Rate [ 77 81 Anterior Bilateral Throughout] Respiratory Rate Respiratory 21 16 Rate [Anterior Bilateral Throughout] Blood Pressure [Left] O2 Sat by Pulse 94 Oximetry 05/10/17 05/10/17 05/11/17 21:20 22:11 05:04 Temperature 98.8 F 98.4 F Pulse Rate 68 58 L Pulse Rate [ Anterior Bilateral Throughout] Respiratory 20 20 Rate Respiratory Rate [Anterior Bilateral Throughout] Blood Pressure 125/41 108/53 [Left] O2 Sat by Pulse 95 100 100 Oximetry - General Appearance General appearance: well-developed, well-nourished, appears stated age, obese, other (no distress, right IJ tunnel catheter) EENT: ATNC, PERRL, mucous membranes moist, hearing intact, vision intact Neck: supple Respiratory: Present: Clear to Ascultation Cardiology: regular, S1S2, no murmurs Gastrointestinal: normoactive bowel sounds, no tenderness, no distended, obese Integumentary: no rash Neurologic: no focal deficit, no asterixis Musculoskeletal: other (no edema, left BKA, left arm AVG) Psychiatric: mood/affect appropriate, cooperative - Lab 05/10/17 04:03 05/11/17 03:57 Most recent lab results Calcium 8.3 mg/dL (8.4-10.2) L 05/11/17 03:57 Phosphorus TNR 05/10/17 04:03 Magnesium TNR 05/10/17 04:03
[2017-05-11] MEDS: NOVOLOG SUB-Q SCH ×2 (08:22→13:10)
[2017-05-11] MEDS: PULMICORT IH SCH (09:07)
--- NOTE | 2017-05-11 09:20 | Progress Note ---
Assessment and Plan Pleural effusion. Pleural transudate Laboratory Tests 05/08/17 05/08/17 Unknown Unknown Fluid WBC 349 Fluid Glucose 129 H Fluid Total Protein < 3.0 L Fluid LDH 68 Congestive heart failure. Controlled after dialysis End-stage renal disease. Acute decompensation secondary to hemodialysis interruption. Improved Cardiac asthma. History suspicious for heart failure with related bronchospasm in the past versus hyperactive airway disorder Obesity Diabetes Recommendations Continue with hemodialysis treatment. Regarding her asthma symptoms, she appears to be controlled at this time. Reportedly, she had been using Advair for maintenance twice a day and albuterol rescue MDI as needed. I'll support continue with the same treatment She plans to eventually go back to [place] in the next week or two, once her hemodialysis treatment can be continued consistently there. We'll sign off Thanks Subjective Date of service: 05/11/17 Interval history: No respiratory complaints overnight. Appears to be in good spirits and an asking to leave soon. Family at the bedside Objective Vital Signs - 12hr 05/10/17 05/10/17 05/11/17 21:20 22:11 05:04 Temperature 98.8 F 98.4 F Pulse Rate 68 58 L Respiratory 20 20 Rate Blood Pressure 125/41 108/53 [Left] O2 Sat by Pulse 95 100 100 Oximetry 05/11/17 08:57 Temperature 97.9 F Pulse Rate 62 Respiratory 20 Rate Blood Pressure 109/33 [Left] O2 Sat by Pulse 98 Oximetry Constitutional: no acute distress, alert Eyes: non-icteric ENT: oropharynx moist Neck: supple, no lymphadenopathy, no JVD Ascultation: Right: clear, Left: diminished breath sounds Cardiovascular: regular rate and rhythm Gastrointestinal: normoactive bowel sounds, non-distended Extremities: no cyanosis, no edema, other (left BKA) Neurologic: normal mental status, non-focal exam Psychiatric: mood appropriate CBC and BMP: 05/10/17 04:03 05/11/17 03:57 ABG, PT/INR, D-dimer: PT/INR, D-dimer PT 16.4 Sec. (12.2-14.9) H 05/07/17 15:07 INR 1.26 (0.87-1.13) H 05/07/17 15:07 Abnormal lab findings: Abnormal Labs 05/07/17 05/07/17 05/07/17 04:34 04:34 04:34 WBC 12.5 H RBC 3.51 L RDW 15.9 H [place] % (Auto) Eos % (Auto) [place] # 0.9 H Eos # Seg Neutrophils % 70.9 H Seg Neutrophils # 8.8 H PT INR Carbon Dioxide 31 H BUN 59 H Creatinine 3.0 H Glucose 139 H POC Glucose Hemoglobin A1c 6.9 H Calcium 7.9 L Albumin 3.0 L Fluid Glucose Fluid Total Protein 05/07/17 05/07/17 05/07/17 07:14 12:01 15:07 WBC RBC RDW [place] % (Auto) Eos % (Auto) [place] # Eos # Seg Neutrophils % Seg Neutrophils # PT 16.4 H INR 1.26 H Carbon Dioxide BUN Creatinine Glucose POC Glucose 109 H 158 H Hemoglobin A1c Calcium Albumin Fluid Glucose Fluid Total Protein 05/07/17 05/08/17 05/08/17 21:44 12:19 17:01 WBC RBC RDW [place] % (Auto) Eos % (Auto) [place] # Eos # Seg Neutrophils % Seg Neutrophils # PT INR Carbon Dioxide BUN Creatinine Glucose POC Glucose 255 H 178 H 117 H Hemoglobin A1c Calcium Albumin Fluid Glucose Fluid Total Protein 05/08/17 05/08/17 05/09/17 20:53 Unknown 15:27 WBC RBC RDW [place] % (Auto) Eos % (Auto) [place] # Eos # Seg Neutrophils % Seg Neutrophils # PT INR Carbon Dioxide BUN Creatinine Glucose POC Glucose 135 H 206 H Hemoglobin A1c Calcium Albumin Fluid Glucose 129 H Fluid Total Protein < 3.0 L 05/09/17 05/09/17 05/10/17 16:42 22:31 04:03 WBC RBC 3.64 L RDW 15.9 H [place] % (Auto) 10.2 H Eos % (Auto) 4.9 H [place] # 1.1 H Eos # 0.5 H Seg Neutrophils % Seg Neutrophils # PT INR Carbon Dioxide BUN Creatinine Glucose POC Glucose 255 H 140 H Hemoglobin A1c Calcium Albumin Fluid Glucose Fluid Total Protein 05/10/17 05/10/17 05/10/17 05:50 07:21 11:35 WBC RBC RDW [place] % (Auto) Eos % (Auto) [place] # Eos # Seg Neutrophils % Seg Neutrophils # PT INR Carbon Dioxide BUN 37 H Creatinine 2.6 H Glucose 134 H POC Glucose 123 H 200 H Hemoglobin A1c Calcium 8.3 L Albumin Fluid Glucose Fluid Total Protein 05/10/17 05/10/17 05/11/17 16:26 22:53 03:57 WBC RBC RDW [place] % (Auto) Eos % (Auto) [place] # Eos # Seg Neutrophils % Seg Neutrophils # PT INR Carbon Dioxide BUN 48 H Creatinine 2.9 H Glucose 133 H POC Glucose 226 H 107 H Hemoglobin A1c Calcium 8.3 L Albumin Fluid Glucose Fluid Total Protein 05/11/17 07:37 WBC RBC RDW [place] % (Auto) Eos % (Auto) [place] # Eos # Seg Neutrophils % Seg Neutrophils # PT INR Carbon Dioxide BUN Creatinine Glucose POC Glucose 152 H Hemoglobin A1c Calcium Albumin Fluid Glucose Fluid Total Protein
[2017-05-11] MEDS: PROTONIX PO SCH (09:21)
[2017-05-11] MEDS: HEPARIN SUB-Q SCH (09:21)
[2017-05-11] MEDS: HALFPRIN EC PO SCH (09:21)
[2017-05-11] MEDS: IMDUR PO SCH (09:26)
[2017-05-11 09:27] VITALS: BP 111/54
[2017-05-11] MEDS: COREG PO SCH (09:27)
--- NOTE | 2017-05-11 10:13 | Discharge Summary ---
Providers - Providers Date of Admission: 05/06/17 12:21 Date of discharge: 05/11/17 Attending physician: ELVIA SIMON 05/06/17 16:27 Consult to Physician [CONS] Routine Consulting Provider: TYRESE SUNSHINE Reason For Exam: esrd Place consult to:: Notified:: Phone number called:: [phone] Was contact made?: Yes If yes, spoke with:: LEFT MESSAGE Time called:: 17:16 Comment:: OTILIO 05/07/17 10:15 Consult to Physician [CONS] Routine Consulting Provider: BRODY DESAI Reason For Exam: left pleural effusion Place consult to:: Dr. Desai Notified:: Primary care physician: [employer]TAIN Hospitalization Reason for admission: SOB Condition: Stable Pertinent studies: CXRs Procedures: Thoracentesis Hospital course: Patient is 81 years old obese female who came from [place] after [place] as unable to get dialysis there; she has multiple chronic conditions - ESRD on HD, CHF, CAD, HTN, DM, COPD, HPL, hypothyroidism and was recently admitted for shortness of breath; was dialyzed and discharged home; during that hospitalization was also diagnosed with pleural effusion which was not addressed; returned for worsening shortness of breath secondary to acute on chronic systolic heart failure and left pleural effusion; she underwent hemodialysis with ultrafiltration and thoracentesis with 800 cc fluid removal which was transudate. Medications regimen suggested. Discharged home in stable condition. Outpatient dialysis setup. She is to follow with nephrology. Discharge diagnoses: 1. Acute on chronic systolic heart failure 2. Left pleural effusion 9. ESRD on HD 3. CAD 4. HTN 5. PVD - status post left BKA 6. COPD 7. DM 8. HPL 10. Hypothyroidism 11. Obesity 12. Mild malnutrition Disposition: - TO HOME OR SELFCARE Time spent for discharge: 35 minutes Core Measure Documentation - Palliative Care Palliative Care/ Comfort Measures: Not Applicable - Core Measures Any of the following diagnoses?: heart failure - Heart Failure Discharge Requirements DELON/ARB for LVSD if EF <40%: No Reason for no DELON/ARB: Renal impairment Beta rosita at discharge: Yes Exam - Physical Exam Narrative exam: Seen and examined: - Constitutional Vitals: Temp Pulse Resp BP Pulse Ox 97.9 F 64 20 111/54 98 05/11/17 08:57 05/11/17 09:27 05/11/17 08:57 05/11/17 09:27 05/11/17 08:57 General appearance: Present: no acute distress - EENT Eyes: Present: PERRL, EOM intact - Neck Neck: Present: supple, normal ROM. Absent: masses or JVD - Respiratory Respiratory effort: normal Respiratory: bilateral: diminished, negative: rhonchi, wheezing - Cardiovascular Rhythm: regular Heart Sounds: Present: S1 & S2. Absent: systolic murmur - Extremities Extremities: no ischemia, abnormal (left BKA) - Abdominal General gastrointestinal: Present: soft, non-tender, non-distended, normal bowel sounds - Neurologic Neurologic: CNII-XII intact, no focal deficits Plan Activity: advance as tolerated, fall precautions Diet: low cholesterol, low salt, diabetic, renal Additional Instructions: Follow-up with nephrology and resume outpatient dialysis Follow up with: PRIMARY CARE,MD [Primary Care Provider] - 3-5 Days Prescriptions: AtorvaSTATin [Lipitor] 40 mg PO QHS #30 tablet clonazePAM [KlonoPIN] 0.5 mg PO QHS #30 tablet Gabapentin [Neurontin] 400 mg PO QHS #30 capsule Insulin Detemir [Levemir] 15 units SUB-Q QHS #4 pen Aspirin [Adult Low Dose Aspirin EC] 81 mg PO DAILY #30 tablet. Budesonide [Pulmicort Respules] 0.5 mg IH Q12HRT #25 nebu Carvedilol [Coreg] 3.125 mg PO BID #60 tablet Insulin Regular, Human [HumuLIN R] 5 units SUB-Q AC #5 pen ISOSORBIDE MONOnitrate [Imdur ER] 30 mg PO DAILY #30 tablet Levothyroxine [Synthroid] 150 mcg PO QAM #30 tablet Pantoprazole [Protonix TAB] 40 mg PO DAILY #30 tablet
== END 2017-05-11 13:54 | disposition home or self-care (01) | DRG 291 ==
LOC: ED 10:23 → 3A 12:21 → CC2 15:55
PROVIDERS: ADMIT Internal Medicine; ATTEND Internal Medicine
PROC: 5A1D70Z Performance of Urinary Filtration, Intermittent, Less than 6 Hours Per Day (ICD-10-PCS; 2017-05-06)
PROC: 5A1D70Z Performance of Urinary Filtration, Intermittent, Less than 6 Hours Per Day (ICD-10-PCS; 2017-05-07)
PROC: 0W9B3ZZ Drainage of Left Pleural Cavity, Percutaneous Approach (ICD-10-PCS; principal; 2017-05-08)
PROC: 5A1D70Z Performance of Urinary Filtration, Intermittent, Less than 6 Hours Per Day (ICD-10-PCS; 2017-05-09)
DX: I13.2 Hypertensive heart and chronic kidney disease with heart failure and with stage 5 chronic kidney disease, or end stage renal disease (principal); N18.6 End stage renal disease; I50.23 Acute on chronic systolic (congestive) heart failure; J96.11 Chronic respiratory failure with hypoxia; J90 Pleural effusion, not elsewhere classified; E44.1 Mild protein-calorie malnutrition; I50.1 Left ventricular failure, unspecified; E03.9 Hypothyroidism, unspecified; K21.9 Gastro-esophageal reflux disease without esophagitis; E78.5 Hyperlipidemia, unspecified; J44.9 Chronic obstructive pulmonary disease, unspecified; D63.1 Anemia in chronic kidney disease; E87.70 Fluid overload, unspecified; E66.9 Obesity, unspecified; E11.22 Type 2 diabetes mellitus with diabetic chronic kidney disease; I25.10 Atherosclerotic heart disease of native coronary artery without angina pectoris; Z68.29 Body mass index [BMI] 29.0-29.9, adult; Z79.899 Other long term (current) drug therapy; Z89.512 Acquired absence of left leg below knee; Z87.01 Personal history of pneumonia (recurrent); Z90.710 Acquired absence of both cervix and uterus; Z79.4 Long term (current) use of insulin; Z79.82 Long term (current) use of aspirin; Z91.013 Allergy to seafood; Z99.81 Dependence on supplemental oxygen
CPT/HCPCS: 32555; 36415; 71010; 71020; 80048; 80053; 80061; 82947; 82962; 83036; 83605; 84160; 84478; 84484; 85025; 85610; 87116; 88112; 88305; 88342; 89051; 93005; 93010; 94640; 94760; 96374; 99285; A9270-GY; J0885; J1644; J1815; J1818; J7030